=== PATIENT | female | born 1950 | race African-American/Black ===

== ENCOUNTER 2018-08-31 21:10 | Inpatient (IN) | payer MEDICARE, OTHER ==
[~2018-08-31] VITALS: Ht 162.6 cm; Wt 59.0 kg
[2018-08-31 21:20] VITALS: BP 116/74
--- NOTE | 2018-08-31 21:20 | NUR ---
ED Nurse Note: Pt was BIBA from home, c/o ETOH. Pt is A/O X3, Confused. Vital signs stable at this time, waiting for orders.
[2018-08-31] MEDS ORDERED: DiphenhydrAMINE 50mg/ml Inj IVP ONE (21:30)
[2018-08-31] MEDS ORDERED: Metoclopramide 10mg/2ml Inj IVP ONE (21:30)
--- NOTE | 2018-08-31 22:00 | NUR ---
ED Nurse Note: Blood and urine sample collected and sent to Lab.
--- NOTE | 2018-08-31 22:18 | NUR ---
ED Nurse Note: Meds given as ordered.
[2018-08-31 22:49] LABS: APPEARANCE,URINE CLEAR; BILIRUBIN, URINE NEGATIVE (NEGATIVE); COLOR,URINE PALE YELLOW; GLUCOSE, URINE (UA) NEGATIVE (NEGATIVE); KETONES,URINE NEGATIVE (NEGATIVE); LEUKOCYTE ESTERASE ,URINE NEGATIVE (NEGATIVE); NITRITE,URINE NEGATIVE (NEGATIVE); PH,URINE 6 (4.5-8.0); PROTEIN,URINE NEGATIVE (NEGATIVE); UROBILINOGEN,URINE NORMAL MG/DL (0.0-1.0)
[2018-08-31 23:19] LABS: BASOPHILS % (AUTO) 1.7 % (0.0-2.0); EOSINOPHILS % (AUTO) 1.6 % (0.0-3.0); HEMOGLOBIN 13.3 G/DL (12.0-16.0); MEAN CORPUSCULAR VOLUME 81 FL (80-99); MONOCYTES % (AUTO) 6.7 % (1.0-10.0); PLATELET COUNT 295 K/UL (150-450); RED BLOOD COUNT 5.03 M/UL (4.20-5.40); WHITE BLOOD COUNT 5.3 K/UL (4.8-10.8)
[2018-08-31 23:44] LABS: ANION GAP 15 mmol/L (5-15); BLOOD UREA NITROGEN 16 mg/dL (7-18); CALCIUM 9.7 MG/DL (8.5-10.1); CARBON DIOXIDE 21 MMOL/L (21-32); CHLORIDE 106 MMOL/L (98-107); CREATININE 0.8 MG/DL (0.55-1.30); POTASSIUM 4.4 MMOL/L (3.5-5.1); SODIUM 142 MMOL/L (136-145)
[2018-08-31 23:49] LABS: ALANINE AMINOTRANSFERASE 22 U/L (12-78); ALBUMIN 4.3 G/DL (3.4-5.0); ALBUMIN/GLOBULIN RATIO 0.8 (1.0-2.7); ALKALINE PHOSPHATASE 110 U/L (46-116); ASPARTATE AMINO TRANSFERASE 33 U/L (15-37); BILIRUBIN,TOTAL 0.3 MG/DL (0.2-1.0)
--- NOTE | 2018-09-01 01:00 | Emergency Room Report ---
History of Present Illness General Chief Complaint: Alcohol Intoxication Source: Patient, EMS Present Illness HPI Patient presents with EMS for alcohol ingestion. She's complaining about chest pain at this time. She points to one point in her chest. She rates the pain 6/ 10, pleuritic and positional nonradiating. She denies cough, fever, chills. No palpitations, nausea, vomiting, diarrhea, dysuria, abdominal pain, shortness of breath, depression, visual changes, headache. Neighbors called. She lives by herself. Neighbors are concerned that she might be unable to care for herself. Allergies: Coded Allergies: No Known Allergies (Unverified , 08/31/18) Patient History Past Medical History: see triage record Social History: Reports: alcohol use; Denies: smoking Social History Narrative Lives by herself Reviewed Nursing Documentation: PMH: Agreed; PSxH: Agreed Nursing Documentation-PMH Past Medical History: No Stated History Review of Systems All Other Systems: negative except mentioned in HPI Physical Exam Vital Signs Date Time Temp Pulse Resp B/P (MAP) Pulse Ox O2 Delivery O2 Flow Rate FiO2 08/31/18 21:13 98.1 92 16 117/78 98 Room Air Sp02 EP Interpretation: reviewed, normal General Appearance: well appearing, no apparent distress, non-toxic, other - GCS 14 Head: normocephalic, atraumatic Eyes: bilateral eye PERRL, bilateral eye EOMI, bilateral eye Scleral Injection ENT: moist mucus membranes - Poor dentition Neck: full range of motion, supple, no bony tend Respiratory: lungs clear, normal breath sounds Cardiovascular #1: regular rate, rhythm Cardiovascular #2: 2+ radial (R) Gastrointestinal: normal inspection, normal bowel sounds, non tender, no mass, non-distended Musculoskeletal: back normal, gait/station normal, normal range of motion Neurologic: alert, motor strength/tone normal, DTRs symmetric, sensory intact, other - Slurred speech and ataxia, nystagmus, oriented - 2 Psychiatric: mood/affect normal, no suicidal/homicidal ideation, other - Angry at nurse Skin: normal inspection, warm/dry Medical Decision Making Diagnostic Impression: Primary Impression: Failure to thrive Qualified Codes: R62.7 - Adult failure to thrive Additional Impressions: Alcohol abuse Chest pain Qualified Codes: R07.89 - Other chest pain ER Course Patient presents with acute alcohol intoxication and complaining about chest pain. Differential includes acute myocardial infarction, pneumonia, costochondritis amongst others. Patient will be evaluated with EKG, chest x- ray and labs. The patient will receive IV hydration and analgesia. EKG with sinus rhythm left atrial enlargement and nonspecific ST-T wave changes. Chest x-ray unremarkable. Labs with positive blood alcohol and negative troponin. Patient resting calmly and improved. Will need reevaluation when sober. Patient reevaluated at 2:15 AM. Easily awakened. States that she wants to go home. States that she lives alone. She denies suicidal ideation. She denies drinking every day. She still is slurred and unsteady on her feet. We'll continue to evaluate and observe until she is able to ambulate. Patient still weak. CT head ordered and admission. CT without acute process. Thiamine ordered. Will need social media marketing manager consult Laboratory Tests Test 08/31/18 20:20 08/31/18 22:00 Urine Color Pale yellow Urine Appearance Clear Urine pH 6 (4.5-8.0) Urine Specific [place] 1.005 (1.005-1.035) Urine Protein Negative (NEGATIVE) Urine Glucose (UA) Negative (NEGATIVE) Urine Ketones Negative (NEGATIVE) Urine Blood Negative (NEGATIVE) Urine Nitrite Negative (NEGATIVE) Urine Bilirubin Negative (NEGATIVE) Urine Urobilinogen Normal MG/DL (0.0-1.0) Urine Leukocyte Esterase Negative (NEGATIVE) Urine Opiates Screen Negative (NEGATIVE) Urine Barbiturates Screen Negative (NEGATIVE) Phencyclidine (PCP) Screen Negative (NEGATIVE) Urine Amphetamines Screen Negative (NEGATIVE) Urine Benzodiazepines Screen Negative (NEGATIVE) Urine Cocaine Screen Negative (NEGATIVE) Urine Marijuana (THC) Screen Negative (NEGATIVE) White Blood Count 5.3 K/UL (4.8-10.8) Red Blood Count 5.03 M/UL (4.20-5.40) Hemoglobin 13.3 G/DL (12.0-16.0) Hematocrit 41.0 % (37.0-47.0) Mean Corpuscular Volume 81 FL (80-99) Mean Corpuscular Hemoglobin 26.4 PG (27.0-31.0) L Mean Corpuscular Hemoglobin Concent 32.4 G/DL (32.0-36.0) Red Cell Distribution Width 14.0 % (11.6-14.8) Platelet Count 295 K/UL (150-450) Mean Platelet Volume 7.1 FL (6.5-10.1) Neutrophils (%) (Auto) 44.0 % (45.0-75.0) L Lymphocytes (%) (Auto) 46.0 % (20.0-45.0) H Monocytes (%) (Auto) 6.7 % (1.0-10.0) Eosinophils (%) (Auto) 1.6 % (0.0-3.0) Basophils (%) (Auto) 1.7 % (0.0-2.0) Sodium Level 142 MMOL/L (136-145) Potassium Level 4.4 MMOL/L (3.5-5.1) Chloride Level 106 MMOL/L (98-107) Carbon Dioxide Level 21 MMOL/L (21-32) Anion Gap 15 mmol/L (5-15) Blood Urea Nitrogen 16 mg/dL (7-18) Creatinine 0.8 MG/DL (0.55-1.30) Estimate Glomerular Filtration Rate > 60 mL/min (>60) Glucose Level 92 MG/DL (74-106) Calcium Level 9.7 MG/DL (8.5-10.1) Total Bilirubin 0.3 MG/DL (0.2-1.0) Aspartate Amino Transferase (AST) 33 U/L (15-37) Alanine Aminotransferase (ALT) 22 U/L (12-78) Alkaline Phosphatase 110 U/L (46-116) Troponin I 0.000 ng/mL (0.000-0.056) Total Protein 9.6 G/DL (6.4-8.2) H Albumin 4.3 G/DL (3.4-5.0) Globulin 5.3 g/dL Albumin/Globulin Ratio 0.8 (1.0-2.7) L Salicylates Level 4.0 ug/mL (2.8-20) Acetaminophen Level < 2 MCG/ML (10-30) L Serum Alcohol 345 mg/dL EKG Diagnostic Results Rate: normal Rhythm: NSR ST Segments: no acute changes - LAE Rhythm Strip Diag. Results EP Interpretation: yes Rhythm: NSR, no PVC's, no ectopy Chest X-Ray Diagnostic Results Chest X-Ray Diagnostic Results : Chest X-Ray Ordered: Yes # of Views/Limited/Complete: 1 View Indication: Chest Pain EP Interpretation: Yes Interpretation: no consolidation, no effusion, no pneumothorax, other - senile chest Impression: Other Electronically Signed by: Electronically signed by Kevin North MD CT/MRI/US Diagnostic Results CT/MRI/US Diagnostic Results : Imaging Test Ordered: head Impression no sig lesions Last Vital Signs Date Time Temp Pulse Resp B/P (MAP) Pulse Ox O2 Delivery O2 Flow Rate FiO2 09/01/18 08:00 97.8 77 18 120/67 (84) 99 09/01/18 06:25 Room Air Status: improved Disposition: ADMITTED INPATIENT Condition: Serious Scripts Unable to Obtain Active Prescriptions or Reported Meds Referrals: NOT CHOSEN IPA/,REFERRING (PCP) Kevin North MD Sep 01, 2018 01:00
[2018-09-01] MEDS ORDERED: Thiamine HCl 100 MG in D5W 55 ML IVPB STA (05:51)
--- NOTE | 2018-09-01 06:25 | NUR ---
TRANSFER TO FLOOR: Patient transferred to [facility]/321 as ordered . Report given to Bridge/RN. Belongings sent with Pt and rechecked with RN. Pt is A/O X 3. VSS.
[2018-09-01 06:50] VITALS: BP 134/69
--- NOTE | 2018-09-01 06:58 | NUR ---
NURSE NOTES: Received report from ER nurse Johanne Gamboa RN. Belongings checked. Patient A&Ox3-4. On room air. IVs intact, patent, and saline locked. Skin intact. has old scabs and surgery scars. Vital signs stable. Bed in lowest position with call light in reach.
--- NOTE | 2018-09-01 07:00 | NUR ---
NURSE NOTES: Report received from outgoing nurse, rounds made. Patient resting in semi-fowlers position in bed. Denies SOB on RA, no pain/NV. IV heplocks to right finger and LFA intact. Reinforced call light for safety, patient verbalized understanding. Reviewed patient history and medications (patient poor historian) Bed in lowest position, call light in reach, will notify Dr. Blackburn for admission orders, will continue to monitor.
[2018-09-01 08:00] VITALS: BP 120/67
--- NOTE | 2018-09-01 08:12 | NUR ---
HAND-OFF: Report given to VIPIN Fowler.
--- NOTE | 2018-09-01 09:40 | Diagnostic Imaging Report ---
Indication: Headache Technique: Contiguous 5 mm thick transaxial imaging of the head obtained in a Siemens Sensation [address] scanner. Soft tissue and bone windows generated. Automatic Exposure Control was utilized. Total Dose length Product (DLP): 1358.[address] Dose Index Volume (CTDIvol): 70.38 mGy Comparison: none Findings: There is mild prominence of the ventricles, basal cisterns, and cerebral sulci consistent with atrophy. Mild, nonspecific, white matter hypoattenuation is noted throughout the brain consistent with chronic small vessel disease. There is no midline shift, edema, acute hemorrhage, mass effect, or abnormal extra-axial fluid collections. Bones and extra osseous soft tissues are unremarkable. Impression: No acute intracranial bleed, mass effect or edema. Mild atrophy of the brain. Nonspecific white matter hypoattenuation probably due to chronic small vessel disease. [facility] has communicated the preliminary results to the Emergency Department. Their findings are largely concordant with this report. The CT scanner at [facility] is accredited by the [employer] and the scans are performed using dose optimization techniques as appropriate to a performed exam including Automatic Exposure control.
[2018-09-01] MEDS ORDERED: LORazepam 1mg tab ORAL PRN (10:15)
[2018-09-01 10:51] LABS: BASOPHILS % (AUTO) 1.8 % (0.0-2.0); EOSINOPHILS % (AUTO) 3.2 % (0.0-3.0); HEMATOCRIT 39.5 % (37.0-47.0); HEMOGLOBIN 12.3 G/DL (12.0-16.0); LYMPHOCYTES % (AUTO) 27.2 % (20.0-45.0); MEAN CORPUSCULAR VOLUME 83 FL (80-99); MONOCYTES % (AUTO) 11.3 % (1.0-10.0); NEUTROPHILS % (AUTO) 56.6 % (45.0-75.0); PLATELET COUNT 234 K/UL (150-450); RED BLOOD COUNT 4.75 M/UL (4.20-5.40); RED CELL DISTRIBUTION WIDTH 14.5 % (11.6-14.8); WHITE BLOOD COUNT 3.9 K/UL (4.8-10.8)
[2018-09-01 11:03] LABS: ALANINE AMINOTRANSFERASE 18 U/L (12-78); ALBUMIN 3.4 G/DL (3.4-5.0); ALBUMIN/GLOBULIN RATIO 0.7 (1.0-2.7); ALKALINE PHOSPHATASE 84 U/L (46-116); ANION GAP 12 mmol/L (5-15); ASPARTATE AMINO TRANSFERASE 21 U/L (15-37); BILIRUBIN,TOTAL 0.2 MG/DL (0.2-1.0); BLOOD UREA NITROGEN 14 mg/dL (7-18); CALCIUM 9.2 MG/DL (8.5-10.1); CARBON DIOXIDE 23 MMOL/L (21-32); CHLORIDE 111 MMOL/L (98-107); CREATININE 0.8 MG/DL (0.55-1.30); PHOSPHORUS 3.2 MG/DL (2.5-4.9); POTASSIUM 3.8 MMOL/L (3.5-5.1); SODIUM 146 MMOL/L (136-145)
--- NOTE | 2018-09-01 11:24 | NUR ---
*-* INSURANCE*-* ALL AVAILABLE CLINICALS HAS BEEN FAXED TO: SENTHIL HURD: TRUONG P- [id number] [phone] X 1613 f- [phone]...........REVIEW /CLINICAL
--- NOTE | 2018-09-01 11:55 | NUR ---
CASE MANAGEMENT:REVIEW 68 YR OLD FEMALE BIBA CC: ALCOHOL INTOXICATION SI: FTT. ALCOHOL ABUSE. CHEST PAIN 98.1 92 16 117/78 98% ON RA SERUM ALCOHOL(+) 345 IS: IV BENADRYL IV PEPCID 1L NS BOLUS IV REGLAN IV THIAMINE CT HEAD CHEST XRAY : TO MED/SURG 3 EAST IS: ATIVAN PO Q6HRS PRN PROTONIX PO QD IVF@75/HR INTERQUAL CRITERIA MET
[2018-09-01 12:00] VITALS: BP 133/63
--- NOTE | 2018-09-01 12:00 | Diagnostic Imaging Report ---
Indication: Chest pain Comparison: None A single view chest radiograph was obtained. Findings: No definite infiltrate or pulmonary vascular congestion identified. The heart is enlarged. The aorta is mildly enlarged consistent with atherosclerotic vascular disease. The bones are osteopenic. Impression: No acute disease
[2018-09-01] MEDS: D5 1/2NS w/KCl 20mEq 1,000 ML IV SCH (13:15)
--- NOTE | 2018-09-01 13:45 | NUR ---
NURSE NOTES: IVF started as ordered. Bilateral SCDs applied and instructed patient on purpose, verbalized understanding. Notify Dr. Blackburn of lab results (Mg 1.7, Sodium 146, Chlorine 111), no further orders received.
--- NOTE | 2018-09-01 15:11 | History & Physical ---
History and Physical History & Physicial Maicol Blackburn MD Sep 01, 2018 15:11
--- NOTE | 2018-09-01 15:24 | Consultation ---
History of Present Illness General Date patient seen: Sep 01, 2018 Chief Complaint: Alcohol Intoxication Present Illness HPI 68 year old female with no PMHx was taken by paramedics to ER because her neighbors called 911. She was found altered with ETOH level of 350. she is admitted for ETOH intoxication. Allergies: Coded Allergies: No Known Allergies (Unverified , 08/31/18) Medication History Unable to Obtain Active Prescriptions or Reported Meds Patient History Healthcare decision maker Resuscitation status Advanced Directive on File Past Medical/Surgical History Past Medical/Surgical History: (1) Alcohol abuse Review of Systems All Other Systems: negative except mentioned in HPI Physical Exam General Appearance: WD/WN Lines, tubes and drains: peripheral HEENT: normocephalic, atraumatic Neck: non-tender, normal alignment Respiratory/Chest: chest wall non-tender, lungs clear Breasts: no masses Cardiovascular/Chest: normal peripheral pulses Genitourinary/Rectal: normal genital exam Extremities: non-tender Skin Exam: normal pigmentation Last 24 Hour Vital Signs Date Time Temp Pulse Resp B/P (MAP) Pulse Ox O2 Delivery O2 Flow Rate FiO2 09/01/18 12:00 99.0 97 18 133/63 (86) 96 09/01/18 08:00 97.8 77 18 120/67 (84) 99 09/01/18 06:50 97.6 83 18 134/69 (90) 99 09/01/18 06:25 98.1 91 16 116/74 98 Room Air 08/31/18 21:20 92 16 Room Air 08/31/18 21:20 98.1 91 16 116/74 98 Room Air 08/31/18 21:13 98.1 92 16 117/78 98 Room Air Intake and Output 08/31/18 09/01/18 19:00 07:00 Intake Total 1600 ml Output Total 400 ml Balance 1200 ml Intake Oral 100 ml IV Total 1500 ml Output Urine Total 400 ml Laboratory Tests Test 08/31/18 20:20 08/31/18 22:00 09/01/18 10:35 Urine Color Pale yellow Urine Appearance Clear Urine pH 6 (4.5-8.0) Urine Specific [place] 1.005 (1.005-1.035) Urine Protein Negative (NEGATIVE) Urine Glucose (UA) Negative (NEGATIVE) Urine Ketones Negative (NEGATIVE) Urine Blood Negative (NEGATIVE) Urine Nitrite Negative (NEGATIVE) Urine Bilirubin Negative (NEGATIVE) Urine Urobilinogen Normal MG/DL (0.0-1.0) Urine Leukocyte Esterase Negative (NEGATIVE) Urine Opiates Screen Negative (NEGATIVE) Urine Barbiturates Screen Negative (NEGATIVE) Phencyclidine (PCP) Screen Negative (NEGATIVE) Urine Amphetamines Screen Negative (NEGATIVE) Urine Benzodiazepines Screen Negative (NEGATIVE) Urine Cocaine Screen Negative (NEGATIVE) Urine Marijuana (THC) Screen Negative (NEGATIVE) White Blood Count 5.3 K/UL (4.8-10.8) 3.9 K/UL (4.8-10.8) L Red Blood Count 5.03 M/UL (4.20-5.40) 4.75 M/UL (4.20-5.40) Hemoglobin 13.3 G/DL (12.0-16.0) 12.3 G/DL (12.0-16.0) Hematocrit 41.0 % (37.0-47.0) 39.5 % (37.0-47.0) Mean Corpuscular Volume 81 FL (80-99) 83 FL (80-99) Mean Corpuscular Hemoglobin 26.4 PG (27.0-31.0) L 25.9 PG (27.0-31.0) L Mean Corpuscular Hemoglobin Concent 32.4 G/DL (32.0-36.0) 31.2 G/DL (32.0-36.0) L Red Cell Distribution Width 14.0 % (11.6-14.8) 14.5 % (11.6-14.8) Platelet Count 295 K/UL (150-450) 234 K/UL (150-450) Mean Platelet Volume 7.1 FL (6.5-10.1) 6.3 FL (6.5-10.1) L Neutrophils (%) (Auto) 44.0 % (45.0-75.0) L 56.6 % (45.0-75.0) Lymphocytes (%) (Auto) 46.0 % (20.0-45.0) H 27.2 % (20.0-45.0) Monocytes (%) (Auto) 6.7 % (1.0-10.0) 11.3 % (1.0-10.0) H Eosinophils (%) (Auto) 1.6 % (0.0-3.0) 3.2 % (0.0-3.0) H Basophils (%) (Auto) 1.7 % (0.0-2.0) 1.8 % (0.0-2.0) Sodium Level 142 MMOL/L (136-145) 146 MMOL/L (136-145) H Potassium Level 4.4 MMOL/L (3.5-5.1) 3.8 MMOL/L (3.5-5.1) Chloride Level 106 MMOL/L (98-107) 111 MMOL/L (98-107) H Carbon Dioxide Level 21 MMOL/L (21-32) 23 MMOL/L (21-32) Anion Gap 15 mmol/L (5-15) 12 mmol/L (5-15) Blood Urea Nitrogen 16 mg/dL (7-18) 14 mg/dL (7-18) Creatinine 0.8 MG/DL (0.55-1.30) 0.8 MG/DL (0.55-1.30) Estimat Glomerular Filtration Rate > 60 mL/min (>60) > 60 mL/min (>60) Glucose Level 92 MG/DL (74-106) 85 MG/DL (74-106) Calcium Level 9.7 MG/DL (8.5-10.1) 9.2 MG/DL (8.5-10.1) Total Bilirubin 0.3 MG/DL (0.2-1.0) 0.2 MG/DL (0.2-1.0) Aspartate Amino Transf (AST/SGOT) 33 U/L (15-37) 21 U/L (15-37) Alanine Aminotransferase (ALT/SGPT) 22 U/L (12-78) 18 U/L (12-78) Alkaline Phosphatase 110 U/L (46-116) 84 U/L (46-116) Troponin I 0.000 ng/mL (0.000-0.056) Total Protein 9.6 G/DL (6.4-8.2) H 8.0 G/DL (6.4-8.2) Albumin 4.3 G/DL (3.4-5.0) 3.4 G/DL (3.4-5.0) Globulin 5.3 g/dL 4.6 g/dL Albumin/Globulin Ratio 0.8 (1.0-2.7) L 0.7 (1.0-2.7) L Salicylates Level 4.0 ug/mL (2.8-20) Acetaminophen Level < 2 MCG/ML (10-30) L Serum Alcohol 345 mg/dL Phosphorus Level 3.2 MG/DL (2.5-4.9) Magnesium Level 1.7 MG/DL (1.8-2.4) L Height (Feet): 5 Height (Inches): 4.00 Weight (Pounds): 130 Medications Current Medications Medications (Trade) Dose Ordered Sig/Sasha Route PRN Reason Start Time Stop Time Status Last Admin Dose Admin Dextrose/ Electrolytes 1,000 ml @ 75 mls/hr [id number] IV 09/01/18 12:00 10/01/18 11:59 09/01/18 13:15 Lorazepam (Ativan) 1 mg Q6H PRN ORAL For Agitation 09/01/18 10:15 09/08/18 10:14 Pantoprazole (Protonix) 40 mg DAILY ORAL 09/01/18 11:00 10/01/18 10:59 09/01/18 13:15 Assessment/Plan Problem List: (1) Acute encephalopathy ICD Codes: G93.40 - Encephalopathy, unspecified SNOMED: 49039124, 340692387 (2) Alcohol abuse ICD Codes: F10.10 - Alcohol abuse, uncomplicated SNOMED: 05000785 Diagnosis [place] I: iv fluids Banan bag check electrolytes folic acid and thiamine dvt prophylaxis. Elan Rodney MD Sep 01, 2018 15:24
[2018-09-01 16:00] VITALS: BP 130/65
--- NOTE | 2018-09-01 19:00 | NUR ---
NURSE NOTES: Seizure pads applied to bed. No seizure activity noted throughout shift. Will continue to monitor.
--- NOTE | 2018-09-01 19:15 | NUR ---
HAND-OFF: Report given to Yessy LEW.
[2018-09-01 20:00] VITALS: BP 138/79
--- NOTE | 2018-09-01 21:55 | Cardiology Report ---
APPROVED REPORT EKG Measurement Heart [id number] Normal sinus rhythm Possible Left atrial enlargement Borderline ECG
[2018-09-02] VITALS (7 sets, daily range): BP systolic 130–159; BP diastolic 71–89
--- NOTE | 2018-09-02 | NUR ---
NURSE NOTES: pATIENT IS AAOX3, POOR HISTORIAN. NO PAIN/ AGITATION NOTED. IV SITE INTACT AND PATENT WITH FLUIDS RUNNING. SEIZURE PRECAUTIONS NOTED. BED LOW, BED ALARM ON, CALL LIGHT WITHIN REACH.
--- NOTE | 2018-09-02 00:30 | History and Physical Report ---
DATE OF ADMISSION: 09/01/2018 CHIEF COMPLAINT: Chest wall pain as well as alcohol intoxication. HISTORY OF PRESENT ILLNESS: This is a 68-year-old female with past medical history significant for hypertension, alcoholism, and seizure disorder, who has presented to the hospital complaining about chest wall discomfort as well as alcoholism. The patient was recently admitted to [facility] about two weeks ago for chest pain, had an extensive workup done, according to the patient was essentially unremarkable and subsequently, the patient was discharged home. Now, after the neighbor called, and the patient was subsequently presented to the hospital for further evaluation and alcohol intoxication. PAST MEDICAL HISTORY/PAST SURGICAL HISTORY: Very limited secondary to the patient's status. The patient is a very poor historian and has hypertension and seizure disorder. Denies any dyslipidemia, history of abdominal surgery about 10 years ago. MEDICATIONS AT HOME: Unknown. SOCIAL HISTORY: The patient currently drinks a six-pack of beer since age of 13. Denies any substance abuse. Denies any smoking. FAMILY HISTORY: Noncontributory. REVIEW OF SYSTEMS: Very limited secondary to the patient's status. Complained about chest wall discomfort. Denies any loss of consciousness. Denies any fall or head trauma. Denies any suicidal or homicidal ideation. Denies any double vision. No seizure activity at this time. However, the patient has a history of seizure. PHYSICAL EXAMINATION: VITAL SIGNS: On admission, temperature 98.1, pulse of 92, respirations 16, and blood pressure 117/78. GENERAL: The patient is awake, responsive, and in no acute distress. HEAD AND NECK: Pupils are reactive to light. Extraocular movements are intact. Neck was supple. No JVD. LUNGS: Good air entry. No wheezing or rales. HEART: S1, S2. Distant heart sounds. No murmurs. No gallops. ABDOMEN: Soft, nondistended, and nontender. Mildly obese. The patient has a midline surgical scar, multiple, one was noted, well healed. EXTREMITIES: No cyanosis, clubbing, or edema. NEUROLOGIC: INSIDE PARTS SALES II through XII grossly intact. Motor is 5/5 in all extremities. Gait is not assessed due to the patient's status at this time. RECTAL: Refused and deferred. GENITOURINARY: Refused and deferred. PSYCHIATRIC: Mood and affect is intact LABORATORY DATA: On admission from the ER, WBC of 5.3, hemoglobin 13, hematocrit 41, and platelets is 295,000. Sodium 142, potassium 4.4, chloride 106, bicarb 21, BUN 16, and creatinine 0.8. GFR is greater than 60. Glucose 92. Troponin 0.01. Total bilirubin of 0.3. Albumin is 4.3. Urinalysis is unremarkable. Urine drug screen is all negative. Alcohol serum alcohol level is 345. The patient had a CT of the head, no acute intracranial bleeding, mass effect, or edema. Mild atrophy of the brain, nonspecific white matter, hypoattenuation, probably due to the chronic small-vessel disease. Chest x-ray, no acute disease, no infiltrate, and no pulmonary vascular congestion. EKG was noted to be normal sinus rhythm, ventricular rate of 81, left atrial enlargement. No ST elevation was noted. The patient had a Q-wave in the inferior leads, leads 2, 3, and AVF was noted as well as V5, V6. ASSESSMENT: 1. Atypical chest pain, possibly due to the acid reflux or gastroesophageal reflux disease. 2. Alcohol intoxication. 3. Hypertension. 4. Failure to thrive. PLAN: 1. Admit the patient to Med/Surg. 2. We will follow up with Dr. Rodney, Pulmonary Critical Care. 3. Aggressive IV hydration. 4. Alcohol withdrawal precaution. 5. We will try to obtain the medical record and the medication list from the patient or the prior admission from the other hospital. 6. We will follow up with the laboratory in the morning. 7. PT and OT evaluation. Maicol Blackburn M.D. DR: CHIKI JOB#: [id number] CC:
[2018-09-02] MEDS: D5 1/2NS w/KCl 20mEq 1,000 ML IV SCH ×2 (01:49→14:40)
--- NOTE | 2018-09-02 07:10 | NUR ---
NURSE NOTES: Report received from outgoing nurse, rounds made. Patient sitting in high fowlers position in bed, eating breakfast, no difficulty chewing or swallowing. Denies NV, SOB on RA, or pain. Seizure pads in place. Bilateral SCDS on. Reinforced call light for safety. IVF infusing to right finger as ordered. Left hand heplock discontinued due to catheter coming out. Offered bedpan, patient denied need to void/BM at this time. Call light in reach, bed in lowest position, will continue to monitor.
--- NOTE | 2018-09-02 07:50 | NUR ---
HAND-OFF: Report given to VIPIN Fowler. Patient stable.
--- NOTE | 2018-09-02 10:28 | NUR ---
RD ASSESSMENT & RECOMMENDATIONS SEE CARE ACTIVITY FOR COMPLETE ASSESSMENT DAILY ESTIMATED NEEDS: Needs based on General, 59kg 25-30 kcals/kg [id number] total kcals 0.8-1.0 g protein/kg 47-59 g total protein 25-30 mL/kg [id number] total fluid mLs NUTRITION DIAGNOSIS: Altered nutrition related lab values R/T clinical condition, ETOH abuse as evidenced by low mag (1.7), serum alcohol of 345 upon adm. CURRENT DIET:CARDIAC PO DIET RECOMMENDATIONS: REGULAR diet as tolerated ADDITIONAL RECOMMENDATIONS: Standing wt as able for accurate CBW Replete lytes, monitor closely (low mag) Continue B1 and folate- h/o alcohol abuse Monitor PO tolerance, for alcohol withdrawal
--- NOTE | 2018-09-02 10:47 | Physician Query ---
Please provide an appropriate diagnosis clarifying the Etiology and Acuity of this clinical scenario: Metabolic Encephalopathy Toxic Encephalopathy Toxic - Metabolic Encephalopathy Septic Encephalopathy with Sepsis Acute Hepatic Encephalopathy Subacute Hepatic Encephalopathy Encephalopathy due to drugs Encephalopathy Other: Unable To Determine Present on Admission: Yes (Y) Clinically Undeterminable (W) No (N) PHYSICIAN QUERY FORM ALTERED LEVEL OF CONSCIOUSNESS
[2018-09-02] MEDS: Thiamine 100mg tab ORAL SCH (10:52)
--- NOTE | 2018-09-02 11:28 | Pulmonology Progress Note ---
Assessment/Plan Problems: (1) Acute encephalopathy (2) Alcohol abuse (3) Failure to thrive Assessment/Plan iv fluids pt/ot neuro evaluation check electrolytes Subjective ROS Limited/Unobtainable: No Allergies: Coded Allergies: No Known Allergies (Unverified , 08/31/18) Objective Last 24 Hour Vital Signs Date Time Temp Pulse Resp B/P (MAP) Pulse Ox O2 Delivery O2 Flow Rate FiO2 09/02/18 08:00 97.9 83 16 130/71 (90) 98 09/02/18 04:00 98.5 78 20 147/78 (101) 96 09/02/18 00:00 98.0 74 20 159/89 (112) 98 09/01/18 21:00 Room Air 09/01/18 20:00 99.1 90 20 138/79 (98) 96 09/01/18 18:00 Room Air 09/01/18 16:00 98.8 87 18 130/65 (86) 96 09/01/18 12:00 99.0 97 18 133/63 (86) 96 Intake and Output 09/01/18 09/02/18 19:00 07:00 Intake Total 990 ml 975 ml Balance 990 ml 975 ml Intake Oral 540 ml IV Total 450 ml 975 ml # Voids 2 # Bowel Movements 2 1 Objective General Appearance: WD/WN Lines, tubes and drains: peripheral HEENT: normocephalic, atraumatic Neck: non-tender, normal alignment Respiratory/Chest: chest wall non-tender, lungs clear Breasts: no masses Cardiovascular/Chest: normal peripheral pulses Genitourinary/Rectal: normal genital exam Extremities: non-tender Skin Exam: normal pigmentation Current Medications Medications (Trade) Dose Ordered Sig/Sasha Route PRN Reason Start Time Stop Time Status Last Admin Dose Admin Dextrose/ Electrolytes 1,000 ml @ 75 mls/hr [id number] IV 09/01/18 12:00 10/01/18 11:59 09/02/18 01:49 Folic Acid (Folate) 1 mg DAILY ORAL 09/02/18 09:00 10/02/18 08:59 09/02/18 10:52 Lorazepam (Ativan) 1 mg Q6H PRN ORAL For Agitation 09/01/18 10:15 09/08/18 10:14 Pantoprazole (Protonix) 40 mg DAILY ORAL 09/01/18 11:00 10/01/18 10:59 09/02/18 10:51 Thiamine HCl (Vitamin B1) 100 mg DAILY ORAL 09/02/18 09:00 10/02/18 08:59 09/02/18 10:52 Elan Rodney MD Sep 02, 2018 11:28
--- NOTE | 2018-09-02 13:30 | NUR ---
CASE MANAGEMENT: REVIEW SI: ACUTE ENCEPHALOPATHY . ALCOHOL ABUSE . FAILURE TO THRIVE T 98.1 HR 75 RR 18 BP 159/89 SAT 96% ROOM AIR IS: FOLIC ACID PO QD THIAMINE PO QD D5 1/2 w/KCl 20mEq IVF @75ML/HR PROTONIX PO QD ATIVAN PO Q6HR PRN MED/SURG STATUS DCP: PATIENT IS FROM HOME
--- NOTE | 2018-09-02 15:39 | Internal Med Progress Note ---
Subjective Date of Service: Sep 02, 2018 Physician Name Juan F Molina Attending Physician Maicol Blackburn MD Current Medications Medications (Trade) Dose Ordered Sig/Sasha Route PRN Reason Start Time Stop Time Status Last Admin Dose Admin Dextrose/ Electrolytes 1,000 ml @ 75 mls/hr [id number] IV 09/01/18 12:00 10/01/18 11:59 09/02/18 01:49 Folic Acid (Folate) 1 mg DAILY ORAL 09/02/18 09:00 10/02/18 08:59 09/02/18 10:52 Lorazepam (Ativan) 1 mg Q6H PRN ORAL For Agitation 09/01/18 10:15 09/08/18 10:14 Pantoprazole (Protonix) 40 mg DAILY ORAL 09/01/18 11:00 10/01/18 10:59 09/02/18 10:51 Thiamine HCl (Vitamin B1) 100 mg DAILY ORAL 09/02/18 09:00 10/02/18 08:59 09/02/18 10:52 Allergies: Coded Allergies: No Known Allergies (Unverified , 08/31/18) ROS Limited/Unobtainable: No Constitutional: Reports: no symptoms HEENT: Reports: no symptoms Cardiovascular: Reports: no symptoms Respiratory: Reports: no symptoms Gastrointestinal/Abdominal: Reports: no symptoms Genitourinary: Reports: no symptoms Neurologic/Psychiatric: Reports: no symptoms Subjective 68 YO F admitted with atypical chest pain and alcohol intoxication. Cover for Int Frederic-Dr Blackburn Objective Last Vital Signs Date Time Temp Pulse Resp B/P (MAP) Pulse Ox O2 Delivery O2 Flow Rate FiO2 09/02/18 12:05 98.1 75 18 137/74 (95) 97 09/01/18 21:00 Room Air Intake and Output 09/01/18 09/02/18 19:00 07:00 Intake Total 990 ml 975 ml Balance 990 ml 975 ml Intake Oral 540 ml IV Total 450 ml 975 ml # Voids 2 # Bowel Movements 2 1 Objective PHYSICAL EXAMINATION: GENERAL: The patient is awake, responsive, and in no acute distress. HEAD AND NECK: Pupils are reactive to light. Extraocular movements are intact. Neck was supple. No JVD. LUNGS: Good air entry. No wheezing or rales. HEART: S1, S2. Distant heart sounds. No murmurs. No gallops. ABDOMEN: Soft, nondistended, and nontender. Mildly obese. The patient has a midline surgical scar, multiple, one was noted, well healed. EXTREMITIES: No cyanosis, clubbing, or edema. NEUROLOGIC: NARROW GAUGE ENGINEER II through XII grossly intact. Motor is 5/5 in all extremities. Gait is not assessed due to the patient's status at this time. RECTAL: Refused and deferred. GENITOURINARY: Refused and deferred. PSYCHIATRIC: Mood and affect is intact Assessment/Plan Assessment/Plan ASSESSMENT: 1. Atypical chest pain, possibly due to the acid reflux or gastroesophageal reflux disease. 2. Alcohol intoxication. 3. Hypertension. 4. Failure to thrive. PLAN: 1. Admit the patient to Med/Surg. 2. We will follow up with Dr. Rodney, Pulmonary Critical Care. 3. Aggressive IV hydration. 4. Alcohol withdrawal precaution. 5. We will try to obtain the medical record and the medication list from the patient or the prior admission from the other hospital. 6. We will follow up with the laboratory in the morning. 7. PT and OT evaluation. Juan F Molina MD Sep 02, 2018 15:39
--- NOTE | 2018-09-02 17:15 | NUR ---
NURSE NOTES: Patient experiencing left shoulder pain, 7/10, after multiple IV insertion attempts (unsuccessful). Elevated LUE and applie Ice pack to left shoulder. Patient reports pain decreased to 4/10. Will continue to monitor.
--- NOTE | 2018-09-02 19:00 | NUR ---
NURSE NOTES: Notified Dr. Molina of no IV access and unable find IV access with many attempts, order for PICC line placement, see order.
--- NOTE | 2018-09-02 19:40 | NUR ---
HAND-OFF: Report given to Yessy LEW.
--- NOTE | 2018-09-02 19:45 | NUR ---
NURSE NOTES: Patient is in bed, aaox3. Pain 5/10 left shoulder. Ice pack applied. Patient refusing to signs PICC line insertion consent. Says she feels "scared". Will notify MD in Am. Side rails upx2, bed alarm on, side rails padded, bed low, call light within reach.
--- NOTE | 2018-09-02 23:04 | Consultation ---
History of Present Illness General Date patient seen: Sep 02, 2018 Chief Complaint: Alcohol Intoxication Referring physician: Dr. Jason Noble Reason for Consultation: AMS Present Illness ARASH Garvey is a 68 year old female with no PMHx was taken by paramedics to ER because her neighbors called 911. She was found altered with ETOH level of 350. she is admitted for ETOH intoxication. Allergies: Coded Allergies: No Known Allergies (Unverified , 08/31/18) Medication History Unable to Obtain Active Prescriptions or Reported Meds Patient History Healthcare decision maker Resuscitation status Advanced Directive on File Physical Exam Last 24 Hour Vital Signs Date Time Temp Pulse Resp B/P (MAP) Pulse Ox O2 Delivery O2 Flow Rate FiO2 09/02/18 21:00 Room Air 09/02/18 20:00 99.1 76 18 149/80 (103) 99 09/02/18 17:00 94 146/80 (102) 09/02/18 16:05 98.8 80 18 147/78 (101) 95 09/02/18 12:05 98.1 75 18 137/74 (95) 97 09/02/18 09:00 Room Air 09/02/18 08:00 97.9 83 16 130/71 (90) 98 09/02/18 04:00 98.5 78 20 147/78 (101) 96 09/02/18 00:00 98.0 74 20 159/89 (112) 98 Intake and Output 09/01/18 09/02/18 19:00 07:00 Intake Total 990 ml 975 ml Balance 990 ml 975 ml Intake Oral 540 ml IV Total 450 ml 975 ml # Voids 2 # Bowel Movements 2 1 Height (Feet): 5 Height (Inches): 4.00 Weight (Pounds): 130 Medications Current Medications Medications (Trade) Dose Ordered Sig/Sasha Route PRN Reason Start Time Stop Time Status Last Admin Dose Admin Dextrose/ Electrolytes 1,000 ml @ 75 mls/hr [id number] IV 09/01/18 12:00 10/01/18 11:59 09/02/18 01:49 Folic Acid (Folate) 1 mg DAILY ORAL 09/02/18 09:00 10/02/18 08:59 09/02/18 10:52 Lorazepam (Ativan) 1 mg Q6H PRN ORAL For Agitation 09/01/18 10:15 09/08/18 10:14 Pantoprazole (Protonix) 40 mg DAILY ORAL 09/01/18 11:00 10/01/18 10:59 09/02/18 10:51 Thiamine HCl (Vitamin B1) 100 mg DAILY ORAL 09/02/18 09:00 10/02/18 08:59 09/02/18 10:52 Rebecca Dyer N.P. Sep 02, 2018 23:04
[2018-09-03] VITALS: BP 134/72
[2018-09-03 04:00] VITALS: BP 136/72
[2018-09-03] MEDS: D5 1/2NS w/KCl 20mEq 1,000 ML IV SCH (04:00)
[2018-09-03 07:04] LABS: BASOPHILS % (AUTO) 2.3 % (0.0-2.0); EOSINOPHILS % (AUTO) 3.5 % (0.0-3.0); HEMATOCRIT 40.2 % (37.0-47.0); HEMOGLOBIN 12.7 G/DL (12.0-16.0); LYMPHOCYTES % (AUTO) 40.1 % (20.0-45.0); MEAN CORPUSCULAR VOLUME 82 FL (80-99); MONOCYTES % (AUTO) 9.2 % (1.0-10.0); NEUTROPHILS % (AUTO) 44.9 % (45.0-75.0); PLATELET COUNT 252 K/UL (150-450); RED CELL DISTRIBUTION WIDTH 13.8 % (11.6-14.8); WHITE BLOOD COUNT 5.1 K/UL (4.8-10.8)
[2018-09-03 07:08] LABS: ANION GAP 9 mmol/L (5-15); CALCIUM 10.3 MG/DL (8.5-10.1); CARBON DIOXIDE 27 MMOL/L (21-32); CHLORIDE 102 MMOL/L (98-107); CREATININE 0.7 MG/DL (0.55-1.30); POTASSIUM 4.3 MMOL/L (3.5-5.1); SODIUM 138 MMOL/L (136-145)
--- NOTE | 2018-09-03 07:20 | NUR ---
NURSE NOTES: Report received from outgoing nurse, rounds made. Patient sleeping in supine position in bed. No distress noted, on RA. No IV access. Call light in reach, bed in lowest position, will continue to monitor.
[2018-09-03 07:23] LABS: BLOOD UREA NITROGEN 12 mg/dL (7-18)
--- NOTE | 2018-09-03 07:23 | NUR ---
HAND-OFF: Report given to VIPIN Fowler.Endorsed patient did not sign PICC line consent.
[2018-09-03 08:00] VITALS: BP 131/78
[2018-09-03] MEDS: Thiamine 100mg tab ORAL SCH (09:21)
--- NOTE | 2018-09-03 09:30 | NUR ---
NURSE NOTES: Patient up to bathroom with assist and RW, gait slow. BM (BFM). Tolerated breakfast, no NV. Sitting up in chair, call light in reach. Left shoulder pain 7/10, applied ice pack. Discussed another possible attempt later to obtain IV access, patient agreed. Explained PICC line procedure, patient still hesitant and does not want to sign the consent at this time. Will continue to monitor.
--- NOTE | 2018-09-03 11:45 | NUR ---
NURSE NOTES: Patient reports left shoulder pain has improved with ice pack application, / at this time, will continue to monitor.
[2018-09-03 12:00] VITALS: BP 120/75
[2018-09-03] MEDS ORDERED: HYDROcodone/Acetamin 5/325 tab ORAL PRN (14:30)
--- NOTE | 2018-09-03 14:37 | Pulmonology Progress Note ---
Assessment/Plan Problems: (1) Acute encephalopathy (2) Alcohol abuse (3) Failure to thrive Assessment/Plan doing better dc iv fluids pt/ot neuro evaluation check electrolytes Subjective ROS Limited/Unobtainable: No Constitutional: Reports: no symptoms HEENT: Repors: no symptoms Respiratory: Reports: no symptoms Allergies: Coded Allergies: No Known Allergies (Unverified , 08/31/18) Objective Last 24 Hour Vital Signs Date Time Temp Pulse Resp B/P (MAP) Pulse Ox O2 Delivery O2 Flow Rate FiO2 09/03/18 12:00 98.2 82 17 120/75 (90) 100 09/03/18 09:00 Room Air 09/03/18 08:00 98.5 114 19 131/78 (95) 96 09/03/18 04:00 98.6 86 18 136/72 (93) 99 09/03/18 00:00 98.6 86 18 134/72 (92) 99 09/02/18 21:00 Room Air 09/02/18 20:00 99.1 76 18 149/80 (103) 99 09/02/18 17:00 94 146/80 (102) 09/02/18 16:05 98.8 80 18 147/78 (101) 95 Intake and Output 09/02/18 09/03/18 19:00 07:00 Intake Total 1054 ml Balance 1054 ml Intake Oral 829 ml IV Total 225 ml # Voids 3 Objective General Appearance: WD/WN Lines, tubes and drains: peripheral HEENT: normocephalic, atraumatic Neck: non-tender, normal alignment Respiratory/Chest: chest wall non-tender, lungs clear Breasts: no masses Cardiovascular/Chest: normal peripheral pulses Genitourinary/Rectal: normal genital exam Extremities: non-tender Skin Exam: normal pigmentation Laboratory Tests 09/03/18 04:50: White Blood Count 5.1, Red Blood Count 4.90, Hemoglobin 12.7, Hematocrit 40.2, Mean Corpuscular Volume 82, Mean Corpuscular Hemoglobin 25.8L, Mean Corpuscular Hemoglobin Concent 31.6L, Red Cell Distribution Width 13.8, Platelet Count 252, Mean Platelet Volume 6.3L, Neutrophils (%) (Auto) 44.9L, Lymphocytes (%) (Auto) 40.1, Monocytes (%) (Auto) 9.2, Eosinophils (%) (Auto) 3.5H, Basophils (%) (Auto ) 2.3H, Sodium Level 138, Potassium Level 4.3, Chloride Level 102, Carbon Dioxide Level 27, Anion Gap 9, Blood Urea Nitrogen 12, Creatinine 0.7, Estimat Glomerular Filtration Rate > 60, Glucose Level 90, Calcium Level 10.3H Current Medications Medications (Trade) Dose Ordered Sig/Sasha Route PRN Reason Start Time Stop Time Status Last Admin Dose Admin Acetaminophen/ Hydrocodone Bitart ([place] 5/325) 1 tab Q6H PRN ORAL Moderate Pain (Pain Scale 4-6) 09/03/18 14:30 09/10/18 14:29 Folic Acid (Folate) 1 mg DAILY ORAL 09/02/18 09:00 10/02/18 08:59 09/03/18 09:21 Lorazepam (Ativan) 1 mg Q6H PRN ORAL For Agitation 09/01/18 10:15 09/08/18 10:14 Pantoprazole (Protonix) 40 mg DAILY ORAL 09/01/18 11:00 10/01/18 10:59 09/03/18 09:21 Thiamine HCl (Vitamin B1) 100 mg DAILY ORAL 09/02/18 09:00 10/02/18 08:59 09/03/18 09:21 Elan Rodney MD Sep 03, 2018 14:37
[2018-09-03 16:00] VITALS: BP 120/76
--- NOTE | 2018-09-03 16:11 | Internal Med Progress Note ---
Subjective Date of Service: Sep 03, 2018 Physician Name Juan F Molina Attending Physician Maicol Blackburn MD Current Medications Medications (Trade) Dose Ordered Sig/Sasha Route PRN Reason Start Time Stop Time Status Last Admin Dose Admin Acetaminophen/ Hydrocodone Bitart ([place] 5/325) 1 tab Q6H PRN ORAL Moderate Pain (Pain Scale 4-6) 09/03/18 14:30 09/10/18 14:29 Folic Acid (Folate) 1 mg DAILY ORAL 09/02/18 09:00 10/02/18 08:59 09/03/18 09:21 Lorazepam (Ativan) 1 mg Q6H PRN ORAL For Agitation 09/01/18 10:15 09/08/18 10:14 Pantoprazole (Protonix) 40 mg DAILY ORAL 09/01/18 11:00 10/01/18 10:59 09/03/18 09:21 Thiamine HCl (Vitamin B1) 100 mg DAILY ORAL 09/02/18 09:00 10/02/18 08:59 09/03/18 09:21 Allergies: Coded Allergies: No Known Allergies (Unverified , 08/31/18) ROS Limited/Unobtainable: No Constitutional: Reports: no symptoms HEENT: Reports: no symptoms Cardiovascular: Reports: no symptoms Respiratory: Reports: no symptoms Gastrointestinal/Abdominal: Reports: no symptoms Genitourinary: Reports: no symptoms Neurologic/Psychiatric: Reports: no symptoms Subjective 68 YO F admitted with atypical chest pain and alcohol intoxication. Cover for Int Med-Dr Blackburn Objective Last Vital Signs Date Time Temp Pulse Resp B/P (MAP) Pulse Ox O2 Delivery O2 Flow Rate FiO2 09/03/18 12:00 98.2 82 17 120/75 (90) 100 09/03/18 09:00 Room Air Laboratory Tests Test 09/03/18 04:50 White Blood Count 5.1 K/UL (4.8-10.8) Red Blood Count 4.90 M/UL (4.20-5.40) Hemoglobin 12.7 G/DL (12.0-16.0) Hematocrit 40.2 % (37.0-47.0) Mean Corpuscular Volume 82 FL (80-99) Mean Corpuscular Hemoglobin 25.8 PG (27.0-31.0) L Mean Corpuscular Hemoglobin Concent 31.6 G/DL (32.0-36.0) L Red Cell Distribution Width 13.8 % (11.6-14.8) Platelet Count 252 K/UL (150-450) Mean Platelet Volume 6.3 FL (6.5-10.1) L Neutrophils (%) (Auto) 44.9 % (45.0-75.0) L Lymphocytes (%) (Auto) 40.1 % (20.0-45.0) Monocytes (%) (Auto) 9.2 % (1.0-10.0) Eosinophils (%) (Auto) 3.5 % (0.0-3.0) H Basophils (%) (Auto) 2.3 % (0.0-2.0) H Sodium Level 138 MMOL/L (136-145) Potassium Level 4.3 MMOL/L (3.5-5.1) Chloride Level 102 MMOL/L (98-107) Carbon Dioxide Level 27 MMOL/L (21-32) Anion Gap 9 mmol/L (5-15) Blood Urea Nitrogen 12 mg/dL (7-18) Creatinine 0.7 MG/DL (0.55-1.30) Estimat Glomerular Filtration Rate > 60 mL/min (>60) Glucose Level 90 MG/DL (74-106) Calcium Level 10.3 MG/DL (8.5-10.1) H Intake and Output 09/02/18 09/03/18 19:00 07:00 Intake Total 1054 ml Balance 1054 ml Intake Oral 829 ml IV Total 225 ml # Voids 3 Objective PHYSICAL EXAMINATION: GENERAL: The patient is awake, responsive, and in no acute distress. HEAD AND NECK: Pupils are reactive to light. Extraocular movements are intact. Neck was supple. No JVD. LUNGS: Good air entry. No wheezing or rales. HEART: S1, S2. Distant heart sounds. No murmurs. No gallops. ABDOMEN: Soft, nondistended, and nontender. Mildly obese. The patient has a midline surgical scar, multiple, one was noted, well healed. EXTREMITIES: No cyanosis, clubbing, or edema. NEUROLOGIC: INSULATION WORKER II through XII grossly intact. Motor is 5/5 in all extremities. Gait is not assessed due to the patient's status at this time. RECTAL: Refused and deferred. GENITOURINARY: Refused and deferred. PSYCHIATRIC: Mood and affect is intact Assessment/Plan Assessment/Plan ASSESSMENT: 1. Atypical chest pain, possibly due to the acid reflux or gastroesophageal reflux disease. 2. Alcohol intoxication. 3. Hypertension. 4. Failure to thrive. PLAN: 1. Admit the patient to Med/Surg. 2. We will follow up with Dr. Rodney, Pulmonary Critical Care. 3. Aggressive IV hydration. 4. Alcohol withdrawal precaution. 7. PT and OT evaluation. Juan F Molina MD Sep 03, 2018 16:11
--- NOTE | 2018-09-03 19:40 | NUR ---
HAND-OFF: Report given to Yessy LEW.
[2018-09-03 20:00] VITALS: BP 124/76
--- NOTE | 2018-09-03 20:14 | NUR ---
NURSE NOTES: Patient is in bed, aaox3. No signs of acute distress. Pain 3/10 left shoulder. Bed low, bed alarm on, call light within reach.
--- NOTE | 2018-09-03 23:34 | Neurology Progress Note ---
Interim History Interim History ROS Limited/Unobtainable: No Objective Physical Exam Last Vital Signs Date Time Temp Pulse Resp B/P (MAP) Pulse Ox O2 Delivery O2 Flow Rate FiO2 09/03/18 21:00 Room Air 09/03/18 20:00 98.9 84 18 124/76 (92) 100 Laboratory Tests Test 09/03/18 04:50 White Blood Count 5.1 K/UL (4.8-10.8) Red Blood Count 4.90 M/UL (4.20-5.40) Hemoglobin 12.7 G/DL (12.0-16.0) Hematocrit 40.2 % (37.0-47.0) Mean Corpuscular Volume 82 FL (80-99) Mean Corpuscular Hemoglobin 25.8 PG (27.0-31.0) L Mean Corpuscular Hemoglobin Concent 31.6 G/DL (32.0-36.0) L Red Cell Distribution Width 13.8 % (11.6-14.8) Platelet Count 252 K/UL (150-450) Mean Platelet Volume 6.3 FL (6.5-10.1) L Neutrophils (%) (Auto) 44.9 % (45.0-75.0) L Lymphocytes (%) (Auto) 40.1 % (20.0-45.0) Monocytes (%) (Auto) 9.2 % (1.0-10.0) Eosinophils (%) (Auto) 3.5 % (0.0-3.0) H Basophils (%) (Auto) 2.3 % (0.0-2.0) H Sodium Level 138 MMOL/L (136-145) Potassium Level 4.3 MMOL/L (3.5-5.1) Chloride Level 102 MMOL/L (98-107) Carbon Dioxide Level 27 MMOL/L (21-32) Anion Gap 9 mmol/L (5-15) Blood Urea Nitrogen 12 mg/dL (7-18) Creatinine 0.7 MG/DL (0.55-1.30) Estimat Glomerular Filtration Rate > 60 mL/min (>60) Glucose Level 90 MG/DL (74-106) Calcium Level 10.3 MG/DL (8.5-10.1) H Rebecca Dyer [email or web address] Sep 03, 2018 23:34
[2018-09-04] VITALS: BP 120/80
[2018-09-04 04:00] VITALS: BP 136/83
[2018-09-04 06:55] LABS: BASOPHILS % (AUTO) 1.3 % (0.0-2.0); EOSINOPHILS % (AUTO) 3.4 % (0.0-3.0); HEMATOCRIT 39.8 % (37.0-47.0); HEMOGLOBIN 12.9 G/DL (12.0-16.0); MEAN CORPUSCULAR VOLUME 82 FL (80-99); NEUTROPHILS % (AUTO) 49.2 % (45.0-75.0); PLATELET COUNT 267 K/UL (150-450); RED BLOOD COUNT 4.86 M/UL (4.20-5.40); RED CELL DISTRIBUTION WIDTH 13.6 % (11.6-14.8); WHITE BLOOD COUNT 4.4 K/UL (4.8-10.8)
[2018-09-04 07:02] LABS: ANION GAP 9 mmol/L (5-15); BLOOD UREA NITROGEN 11 mg/dL (7-18); CALCIUM 9.9 MG/DL (8.5-10.1); CARBON DIOXIDE 27 MMOL/L (21-32); CHLORIDE 101 MMOL/L (98-107); CREATININE 0.7 MG/DL (0.55-1.30); POTASSIUM 3.6 MMOL/L (3.5-5.1); SODIUM 137 MMOL/L (136-145)
--- NOTE | 2018-09-04 07:35 | NUR ---
HAND-OFF: Report given to VIPIN Rosado. Patient stable.
--- NOTE | 2018-09-04 07:46 | NUR ---
NURSE NOTES: Received report from VIPIN Krishnamurthy. Rounding done with outgoing nurse. Patient asleep peacefully. Bed in lowest position, call light within reach. Will continue to monitor.
[2018-09-04 08:00] VITALS: BP 113/62
[2018-09-04] MEDS: Thiamine 100mg tab ORAL SCH (09:10)
--- NOTE | 2018-09-04 10:52 | NUR ---
*-* INSURANCE*-* UPDATED CLINICALS AND REVIEWS HAVE BEEN FAXED TO: SENTH[facility] HURD: TRUONG P- [phone] [phone] f- [phone]...........REVIEW /CLINICAL
[2018-09-04 12:00] VITALS: BP 124/82
--- NOTE | 2018-09-04 12:59 | Pulmonology Progress Note ---
Assessment/Plan Problems: (1) Acute encephalopathy (2) Alcohol abuse (3) Failure to thrive Assessment/Plan no new complains all reviewed doing better dc iv fluids pt/ot neuro evaluation check electrolytes dc home Subjective ROS Limited/Unobtainable: No Constitutional: Reports: no symptoms HEENT: Repors: no symptoms Allergies: Coded Allergies: No Known Allergies (Unverified , 08/31/18) Objective Last 24 Hour Vital Signs Date Time Temp Pulse Resp B/P (MAP) Pulse Ox O2 Delivery O2 Flow Rate FiO2 09/04/18 12:00 97.9 96 18 124/82 (96) 97 09/04/18 09:00 Room Air 09/04/18 08:00 98.5 90 18 113/62 (79) 96 09/04/18 04:00 98.9 91 16 136/83 (100) 97 09/04/18 00:00 98.7 79 18 120/80 (93) 97 09/03/18 21:00 Room Air 09/03/18 20:00 98.9 84 18 124/76 (92) 100 09/03/18 16:00 98.9 79 19 120/76 (91) 100 Intake and Output 09/03/18 09/04/18 19:00 07:00 Intake Total 237 ml Balance 237 ml Intake Oral 237 ml # Voids 1 # Bowel Movements 2 Objective General Appearance: WD/WN Lines, tubes and drains: peripheral HEENT: normocephalic, atraumatic Neck: non-tender, normal alignment Respiratory/Chest: chest wall non-tender, lungs clear Breasts: no masses Cardiovascular/Chest: normal peripheral pulses Genitourinary/Rectal: normal genital exam Extremities: non-tender Skin Exam: normal pigmentation Laboratory Tests 09/04/18 06:15: White Blood Count 4.4L, Red Blood Count 4.86, Hemoglobin 12.9, Hematocrit 39.8, Mean Corpuscular Volume 82, Mean Corpuscular Hemoglobin 26.6L, Mean Corpuscular Hemoglobin Concent 32.4, Red Cell Distribution Width 13.6, Platelet Count 267, Mean Platelet Volume 6.8, Neutrophils (%) (Auto) 49.2, Lymphocytes (%) (Auto) 36.0, Monocytes (%) (Auto) 10.0, Eosinophils (%) (Auto) 3.4H, Basophils (%) ( Auto) 1.3, Sodium Level 137, Potassium Level 3.6, Chloride Level 101, Carbon Dioxide Level 27, Anion Gap 9, Blood Urea Nitrogen 11, Creatinine 0.7, Estimat Glomerular Filtration Rate > 60, Glucose Level 97, Calcium Level 9.9 Current Medications Medications (Trade) Dose Ordered Sig/Sasha Route PRN Reason Start Time Stop Time Status Last Admin Dose Admin Acetaminophen/ Hydrocodone Bitart ([place] 5/325) 1 tab Q6H PRN ORAL Moderate Pain (Pain Scale 4-6) 09/03/18 14:30 09/10/18 14:29 Folic Acid (Folate) 1 mg DAILY ORAL 09/02/18 09:00 10/02/18 08:59 09/04/18 09:10 Lorazepam (Ativan) 1 mg Q6H PRN ORAL For Agitation 09/01/18 10:15 09/08/18 10:14 Pantoprazole (Protonix) 40 mg DAILY ORAL 09/01/18 11:00 10/01/18 10:59 09/04/18 09:10 Thiamine HCl (Vitamin B1) 100 mg DAILY ORAL 09/02/18 09:00 10/02/18 08:59 09/04/18 09:10 Elan Rodney MD Sep 04, 2018 12:59
--- NOTE | 2018-09-04 14:45 | NUR ---
Social Service Note SW met with patient to assess for home safety. Patient is alert, oriented and verbally responsive. Patient states she was drinking with her neighbors when she developed pain in her arm and chest. Patient states her neighbors called 911. Patient states she does drink and has done so for many years. Patient is not interested in referrals and states she will continue to drink. Patient denies drinking daily but admits it is something she should one day stop. Patient states she lives alone and has a FWW at home and uses as needed. Patient would like to return home. Patient provided her address [address] [place] [address] [id number], . Patient provided her ex Dagoberto Donohue [phone] as her emergency contacted and asked SW to inform him of her discharge home. Message left for Mr. Donohue. Patient states she hasn't followed up with her PCP since she moved from [place], Dr. Bosch [phone]. PT evaluated patient and indicated safety to return home. Patient may return home via taxi. MARIAN discussed with primary nurse and charge nurse.
--- NOTE | 2018-09-04 15:47 | NUR ---
CASE MANAGEMENT:REVIEW 09/03/18 SI: ACUTE ENCEPHALOPATHY ALCOHOL ABUSE. FTT 98.5 114 19 131/78 96% ON RA IS: FOLATE PO QD THIAMINE PO QD PROTONIX PO QD : MED/SURG STATUS 3 EAST
--- NOTE | 2018-09-04 15:50 | NUR ---
NURSE NOTES: Discharge instruction was given. Belongings checked with pt. Patient discharged by herself in stable condition.
--- NOTE | 2018-09-05 10:19 | NUR ---
*-* INSURANCE*-* UPDATED CLINICALS AND REVIEWS HAVE BEEN FAXED TO: [facility] HURD: TRUONG P- [id number] [phone] f- [phone]...........REVIEW /CLINICAL
--- NOTE | 2018-09-05 15:52 | Discharge Summary ---
Discharge Summary Discharge Summary _ DATE OF ADMISSION: 09/01/2018 DATE OF DISCHARGE: 2018 DISCHARGED BY: Dr. Blackburn REASON FOR ADMISSION: 68 years old female with unknown past medical history presented to ED by paramedics enrollment management manager with acute alcohol intoxication. Patient was found altered with EtOH level 350 patient was also complaining with chest pain EKG revealed sinus rhythm with left atrial enlargement and nonspecific ST-T wave changes chest x-ray revealed no acute cardiopulmonary pathology. Troponin was negative. Urinalysis is negative for evidence of UTI urine toxicology screen was negative no leukocytosis stable renal parameters and electrolytes glucose 92 serum alcohol level 345 CONSULTANTS: neurologist Dr. Goode pulmonary [facility] COURSE: Patient admitted. Patient started on IV fluids with thiamine and folic acid. GI prophylaxis provided. Mental status was closely monitored. Renal parameters and electrolytes were closely monitored , nephrotoxins were avoided . Electrolyte/magnesium corrected . No further chest pain . Chest pain was likely atypical due to GERD or acid reflux. Anxiolytic were on board as needed. Symptomatic care provided. Per nutritional assessment , patient was at moderate risk for malnutrition. Nutritional recommendation implemented in plan of care. Patient was counseled on abstinence from ETOH . dairy cattle farm worker met with patient to access for home safety. Patient admitted to ETOH dependency for years. Patient was not interested in referrals and stated that she would continue drinking. Patient lives at home alone and had a front wheel walker , which she uses as needed. Patient preferred to return home. Acute encephalopathy resolved, was likely due to acute alcohol intoxication. Blood pressure was closely monitored and remained stable without any antihypertensive. LFT and bilirubin remained stable. Patient clinically stabilized and was ready for discharge home. FINAL DIAGNOSES: Acute encephalopathy due to ETOH Acute alcohol intoxication Hypertension Atypical chest pain , likely due to GERD/ acid reflux Hypomagnesemia Failure to thrive, likely due to alcohol dependency DISCHARGE MEDICATIONS: See Medication Reconciliation list. DISCHARGE INSTRUCTIONS: Patient was discharged home . Follow up with primary care provider in one week. I have been assigned to dictate discharge summary for this account. I was not involved in the patient's management. Charlee Persaud NP Sep 05, 2018 15:52
== END 2018-09-04 15:50 | disposition home or self-care (01) | DRG 775 ==
LOC: EDBD 21:10 → EMR 21:30 → 3E 09-01 04:58 → EDBEDREQ 09-01 05:12
DX: F10.229 Alcohol dependence with intoxication, unspecified (principal); G93.49 Other encephalopathy; K21.9 Gastro-esophageal reflux disease without esophagitis; R62.7 Adult failure to thrive; I10 Essential (primary) hypertension; R07.89 Other chest pain; E83.42 Hypomagnesemia; Z68.20 Body mass index [BMI] 20.0-20.9, adult
CPT/HCPCS: 36415; 70450; 71045; 80048; 80053; 80307; 80329; 81003; 83735; 84100; 84484; 85025; 93005; 96361; 96365; 96375; 99285; J2765

== ENCOUNTER 2018-09-20 03:14 | Emergency (ER) | payer MEDICARE, OTHER ==
[~2018-09-20] VITALS: Ht 162.6 cm; Wt 54.4 kg
--- NOTE | 2018-09-20 03:20 | NUR ---
ED Nurse Note: pt brought in by [facility] from home c/o chest pain & alcohol intoxication, per EMS report, ems was dispatched and pt was c/o chest pain initially but later stated she just drank four bottles of beer. pt currently states her heart hurts but denies radiation, admits that she drank alcohol. pt AA&ox4, gcs=15, skin warm and dry, resp even and unlabored on RA, -n/v/d, ambulates w/ steady gait, vss, NSR on environmental monitoring technician, will cont monitor.
--- NOTE | 2018-09-20 03:32 | Emergency Room Report ---
History of Present Illness General Chief Complaint: Upper Extremity Injury Source: Patient Present Illness HPI This is a 68-year-old female with history hypertension. She also has a history of alcohol abuse and anxiety. She presents with chief complaint of chest pain. She called EMS. This is a chronic problem for her. Per EMS, she been calling 911 for chest pain multiple time. She was just here a couple weeks ago for the same. Was discharged home. Vision point to her chest for chest pain. No radiation. No shortness of breath. No diaphoresis. The demented better. Concern for movement it worse. Denies any other complaint. Allergies: Coded Allergies: No Known Allergies (Unverified , 09/20/18) Patient History Past Medical History: see triage record, old chart reviewed, HTN, psych hx Past Surgical History: none Pertinent Family History: none Social History: Denies: smoking Now: No Immunizations: other Reviewed Nursing Documentation: PMH: Agreed; PSxH: Agreed Nursing Documentation-PMH Hx Hypertension: Yes History Of Psychiatric Problem: Yes - ANXIETY Hx Seizures: Yes Hx Weakness: Yes - generalized Review of Systems Eye: Denies: eye pain, blurred vision ENT: Denies: ear pain, nose congestion, throat swelling Respiratory: Denies: cough, shortness of breath Cardiovascular: Reports: chest pain; Denies: palpitations Gastrointestinal: Denies: abdominal pain, diarrhea, nausea, vomiting Musculoskeletal: Denies: back pain, joint pain Skin: Denies: rash Neurological: Denies: headache, numbness Endocrine: Denies: increased thirst, increased urine Hematologic/Lymphatic: Denies: easy bruising All Other Systems: negative except mentioned in HPI Physical Exam Vital Signs Date Time Temp Pulse Resp B/P (MAP) Pulse Ox O2 Delivery O2 Flow Rate FiO2 09/20/18 03:16 98.1 86 16 100 Room Air vitals unremarkable Sp02 EP Interpretation: reviewed, normal General Appearance: well appearing, no apparent distress, alert, other - Intoxicated Head: normocephalic, atraumatic Eyes: bilateral eye PERRL, bilateral eye EOMI ENT: hearing grossly normal, normal pharynx Neck: full range of motion, supple, no meningismus Respiratory: chest non-tender, lungs clear, normal breath sounds Cardiovascular #1: regular rate, rhythm, no murmur Gastrointestinal: normal bowel sounds, non tender, no mass, no organomegaly, no bruit, non-distended Musculoskeletal: back normal, gait/station normal, normal range of motion Psychiatric: mood/affect normal Skin: warm/dry Medical Decision Making Diagnostic Impression: Primary Impression: Alcohol intoxication Qualified Codes: F10.920 - Alcohol use, unspecified with intoxication, uncomplicated Additional Impression: Chest pain Qualified Codes: R07.9 - Chest pain, unspecified ER Course Patient presents with chronic chest pain. This is probably secondary to alcohol intoxication and anxiety. No evidence of ACS, PE, dissection. We'll observe until clinical sobriety and discharge in the morning. Patient is not homeless. Last Vital Signs Date Time Temp Pulse Resp B/P (MAP) Pulse Ox O2 Delivery O2 Flow Rate FiO2 09/20/18 03:16 98.1 86 16 100 Room Air Status: improved Disposition: HOME, SELF-CARE Condition: Stable Scripts Unable to Obtain Active Prescriptions or Reported Meds Additional Instructions: abstain from alcohol. Go to rehab. Follow up with your doctor in 7 days. Return if worse. Parvez Shepherd MD September 20, 2018 03:32
[2018-09-20 03:47] VITALS: BP 118/86
--- NOTE | 2018-09-20 04:25 | NUR ---
ED Nurse Note: pt c/o left shoulder pain, pt req medication, ERMD notified, received motrin 600mg one time dose via po received
[2018-09-20 05:21] VITALS: BP 121/86
--- NOTE | 2018-09-20 05:21 | NUR ---
ED Nurse Note: pt sleeping at this time, vss, resp even and unlabored on RA, -n/v/d, will cont monitor.
--- NOTE | 2018-09-20 05:45 | NUR ---
ED Nurse Note: pt now awake and able to answer questions, req to go home, pt states she is hungry and req food, sandwich and juice given.
--- NOTE | 2018-09-20 06:47 | NUR ---
ED Nurse Note: called taxi for confirmation eta 10-15 min.
[2018-09-20 07:18] VITALS: BP 128/67
--- NOTE | 2018-09-20 07:18 | NUR ---
ED Nurse Note: pt cleared to be d/c per ERMD, pt discharge and aftercare instruction provided, pt advised to stop drinking alcohol, pt advised to follow up with pcp or return to ed if changes in condition, pt vss, resp even and unlabored on RA, pt provided w/ taxi. left w/ all belongings. education done via discussion and handout.
== END 2018-09-20 07:18 | disposition home or self-care (01) ==
LOC: EDUNIT# 03:14 → EDBD 03:14 → EMR 03:39
DX: F10.129 Alcohol abuse with intoxication, unspecified (principal); R07.9 Chest pain, unspecified; I10 Essential (primary) hypertension; F41.9 Anxiety disorder, unspecified; G40.909 Epilepsy, unspecified, not intractable, without status epilepticus
CPT/HCPCS: 84484; 99282

== ENCOUNTER 2018-10-08 14:57 | Emergency (ER) | payer MEDICARE, OTHER ==
[~2018-10-08] VITALS: Ht 167.6 cm; Wt 68.0 kg
[2018-10-08 15:04] VITALS: BP 119/71
--- NOTE | 2018-10-08 15:04 | NUR ---
ED Nurse Note: PT FROM HOME BROUGHT IN BY AMBULANCE DUE TO ALCOHOL INTOXICATION. EMS REPORTS PT DRINKING AND PT INTIALLY STATES SHE HAD EPISODES OF SEIZURE TODAY. PT CAME IN AAO X1, VERY TALKATIVE, NO RESPIRATORY DISTRESS, AND NOW DENIES HAVING SEIZURE.
--- NOTE | 2018-10-08 15:11 | Emergency Room Report ---
History of Present Illness General Chief Complaint: Alcohol Intoxication Source: Patient Present Illness HPI Patient transported by EMS. She called them because she felt that she might be having seizures. She's been drinking alcohol today. She supposed be taking Dilantin but apparently has missed some doses. She denies any incontinence or trauma. She is complaining about some left-sided chest pain and feels her heart pounding. Accu-Chek was performed and normal in the field. The patient denies fevers, chills, nausea, vomiting, diarrhea, dysuria. According to EMS they frequently are called to this patient and she has a history of alcohol abuse. She lives by herself. She was admitted August for failure to thrive. A child welfare social worker consultation was done 09/04: Social Service Note MARIAN met with patient to assess for home safety. Patient is alert, oriented and verbally responsive. Patient states she was drinking with her neighbors when she developed pain in her arm and chest. Patient states her neighbors called 911. Patient states she does drink and has done so for many years. Patient is not interested in referrals and states she will continue to drink. Patient denies drinking daily but admits it is something she should one day stop. Patient states she lives alone and has a FWW at home and uses as needed. Patient would like to return home. Patient provided her address [address] [place] [address] [phone], . Patient provided her ex Dagoberto Donohue [phone] as her emergency contacted and asked SW to inform him of her discharge home. Message left for Mr. Donohue. Patient states she hasn't followed up with her PCP since she moved from [place], Dr. Bosch [phone]. PT evaluated patient and indicated safety to return home. Patient may return home via taxi. MARIAN discussed with primary nurse and charge nurse. Patient repeat eval 09/20 for alcohol intoxication. Observed and discharged to home. Allergies: Coded Allergies: No Known Allergies (Unverified , 09/20/18) Patient History Past Medical History: see triage record Social History: Reports: alcohol use Social History Narrative lives by herself Last Menstrual Period: n/a Reviewed Nursing Documentation: PMH: Agreed; PSxH: Agreed Nursing Documentation-PMH Past Medical History: No History, Except For Hx Hypertension: Yes Hx Seizures: Yes Hx Weakness: Yes - generalized Review of Systems All Other Systems: negative except mentioned in HPI Physical Exam Vital Signs Date Time Temp Pulse Resp B/P (MAP) Pulse Ox O2 Delivery O2 Flow Rate FiO2 10/08/18 14:54 98.2 104 18 119/71 (87) 98 Room Air Sp02 EP Interpretation: reviewed, normal General Appearance: well appearing, no apparent distress, other - Slurring her words and alcohol on breath Head: normocephalic, atraumatic Eyes: bilateral eye PERRL, bilateral eye abnormal EOM - Disconjugate gaze, bilateral eye Scleral Injection ENT: normal pharynx, normal voice, moist mucus membranes - No tongue macerations Neck: supple, no bony tend Respiratory: lungs clear, normal breath sounds, other - Minimal chest wall tenderness Cardiovascular #1: regular rate, rhythm Cardiovascular #2: 2+ radial (R) Gastrointestinal: normal inspection, normal bowel sounds, non tender, no mass, non-distended Musculoskeletal: back normal, normal range of motion, other - Ataxic gait Neurologic: alert, motor strength/tone normal, DTRs symmetric, sensory intact, other - Ataxia and nystagmus, oriented - X2 Psychiatric: mood/affect normal - Poor insight Skin: normal inspection, warm/dry Medical Decision Making Diagnostic Impression: Primary Impression: Alcohol intoxication Qualified Codes: F10.929 - Alcohol use, unspecified with intoxication, unspecified Additional Impressions: Noncompliance with medications Hyperkalemia ER Course Patient presents with alleged seizures and chest pain. She also claims that she 's not compliant with her Dilantin. Differential includes acute myocardial infarction, chest contusion, pneumonia, chest wall strain amongst others. In addition it is possible that she could've had a seizure although with alcohol on board this may be less likely. She has a nonfocal neurologic exam at this time and CT is not indicated. The patient will be evaluated with EKG, chest x- ray and labs including a Dilantin level. She'll be observed on a white sourer. She'll be given Tylenol for the chest pain. EKG without injury. CXR no infiltrate. K elevated. Dilantin 1. BAL = 331. Dilantin given IV. Kayexelate given orally. Observed. Still unsteady on feet. Signed out to Dr. Harris. Laboratory Tests Test 10/08/18 15:20 White Blood Count 6.1 K/UL (4.8-10.8) Red Blood Count 4.55 M/UL (4.20-5.40) Hemoglobin 11.8 G/DL (12.0-16.0) L Hematocrit 36.6 % (37.0-47.0) L Mean Corpuscular Volume 80 FL (80-99) Mean Corpuscular Hemoglobin 25.9 PG (27.0-31.0) L Mean Corpuscular Hemoglobin Concent 32.2 G/DL (32.0-36.0) Red Cell Distribution Width 14.2 % (11.6-14.8) Platelet Count 199 K/UL (150-450) Mean Platelet Volume 7.5 FL (6.5-10.1) Neutrophils (%) (Auto) 50.8 % (45.0-75.0) Lymphocytes (%) (Auto) 36.7 % (20.0-45.0) Monocytes (%) (Auto) 7.9 % (1.0-10.0) Eosinophils (%) (Auto) 2.8 % (0.0-3.0) Basophils (%) (Auto) 1.7 % (0.0-2.0) Urine Color Pale yellow Urine Appearance Clear Urine pH 5 (4.5-8.0) Urine Specific [place] 1.005 (1.005-1.035) Urine Protein Negative (NEGATIVE) Urine Glucose (UA) Negative (NEGATIVE) Urine Ketones Negative (NEGATIVE) Urine Blood Negative (NEGATIVE) Urine Nitrite Negative (NEGATIVE) Urine Bilirubin Negative (NEGATIVE) Urine Urobilinogen Normal MG/DL (0.0-1.0) Urine Leukocyte Esterase Negative (NEGATIVE) Sodium Level 141 MMOL/L (136-145) Potassium Level 5.8 MMOL/L (3.5-5.1) H Chloride Level 108 MMOL/L (98-107) H Carbon Dioxide Level 22 MMOL/L (21-32) Anion Gap 11 mmol/L (5-15) Blood Urea Nitrogen 15 mg/dL (7-18) Creatinine 0.6 MG/DL (0.55-1.30) Estimate Glomerular Filtration Rate > 60 mL/min (>60) Glucose Level 107 MG/DL (74-106) H Calcium Level 9.7 MG/DL (8.5-10.1) Total Bilirubin 0.4 MG/DL (0.2-1.0) Aspartate Amino Transferase (AST) 46 U/L (15-37) H Alanine Aminotransferase (ALT) 25 U/L (12-78) Alkaline Phosphatase 95 U/L (46-116) Total Creatine Kinase 216 U/L (26-308) Troponin I 0.000 ng/mL (0.000-0.056) Total Protein 9.1 G/DL (6.4-8.2) H Albumin 4.1 G/DL (3.4-5.0) Globulin 5.0 g/dL Albumin/Globulin Ratio 0.8 (1.0-2.7) L Salicylates Level 1.8 ug/mL (2.8-20) L Urine Opiates Screen Negative (NEGATIVE) Acetaminophen Level < 2 MCG/ML (10-30) L Urine Barbiturates Screen Negative (NEGATIVE) Phenytoin (Dilantin) Level 1.0 ug/mL (10-20) L Phencyclidine (PCP) Screen Negative (NEGATIVE) Urine Amphetamines Screen Negative (NEGATIVE) Urine Benzodiazepines Screen Negative (NEGATIVE) Urine Cocaine Screen Negative (NEGATIVE) Urine Marijuana (THC) Screen Negative (NEGATIVE) Serum Alcohol 331 mg/dL EKG Diagnostic Results Rate: normal Rhythm: NSR ST Segments: no acute changes Rhythm Strip Diag. Results EP Interpretation: yes Rhythm: no PVC's, no ectopy, other - Heart rate 105 Chest X-Ray Diagnostic Results Chest X-Ray Diagnostic Results : Chest X-Ray Ordered: Yes # of Views/Limited/Complete: 1 View Indication: Other EP Interpretation: Yes Interpretation: no consolidation, no effusion, no pneumothorax Impression: No acute disease Electronically Signed by: Electronically signed by Kevin North MD Last Vital Signs Date Time Temp Pulse Resp B/P (MAP) Pulse Ox O2 Delivery O2 Flow Rate FiO2 10/09/18 00:59 95 19 133/69 98 Room Air 10/08/18 22:52 98.5 3.0 Status: improved Disposition: HOME, SELF-CARE Condition: Improved Scripts Unable to Obtain Active Prescriptions or Reported Meds Kevin North MD Oct 08, 2018 15:11
--- NOTE | 2018-10-08 15:20 | NUR ---
ED Nurse Note: COLLECTED BLOOD AND URINE AT THIS TIME.
[2018-10-08 15:48] LABS: ANION GAP 11 mmol/L (5-15); APPEARANCE,URINE CLEAR; BASOPHILS % (AUTO) 1.7 % (0.0-2.0); BILIRUBIN, URINE NEGATIVE (NEGATIVE); BLOOD UREA NITROGEN 15 mg/dL (7-18); CALCIUM 9.7 MG/DL (8.5-10.1); CARBON DIOXIDE 22 MMOL/L (21-32); CHLORIDE 108 MMOL/L (98-107); COLOR,URINE PALE YELLOW; CREATININE 0.6 MG/DL (0.55-1.30); EOSINOPHILS % (AUTO) 2.8 % (0.0-3.0); GLUCOSE, URINE (UA) NEGATIVE (NEGATIVE); HEMATOCRIT 36.6 % (37.0-47.0); HEMOGLOBIN 11.8 G/DL (12.0-16.0); KETONES,URINE NEGATIVE (NEGATIVE); LEUKOCYTE ESTERASE ,URINE NEGATIVE (NEGATIVE); LYMPHOCYTES % (AUTO) 36.7 % (20.0-45.0); MEAN CORPUSCULAR VOLUME 80 FL (80-99); MONOCYTES % (AUTO) 7.9 % (1.0-10.0); NEUTROPHILS % (AUTO) 50.8 % (45.0-75.0); NITRITE,URINE NEGATIVE (NEGATIVE); PH,URINE 5 (4.5-8.0); PLATELET COUNT 199 K/UL (150-450); POTASSIUM 5.8 MMOL/L (3.5-5.1); PROTEIN,URINE NEGATIVE (NEGATIVE); RED BLOOD COUNT 4.55 M/UL (4.20-5.40); RED CELL DISTRIBUTION WIDTH 14.2 % (11.6-14.8); SODIUM 141 MMOL/L (136-145); UROBILINOGEN,URINE NORMAL MG/DL (0.0-1.0); WHITE BLOOD COUNT 6.1 K/UL (4.8-10.8)
[2018-10-08 15:54] LABS: ALANINE AMINOTRANSFERASE 25 U/L (12-78); ALBUMIN 4.1 G/DL (3.4-5.0); ALBUMIN/GLOBULIN RATIO 0.8 (1.0-2.7); ALKALINE PHOSPHATASE 95 U/L (46-116); ASPARTATE AMINO TRANSFERASE 46 U/L (15-37); BILIRUBIN,TOTAL 0.4 MG/DL (0.2-1.0); CREATINE KINASE 216 U/L (26-308)
[2018-10-08] MEDS ORDERED: Phenytoin 500 MG in NS 110 ML IVPB STA (16:06)
[2018-10-08] MEDS ORDERED: Sodium Polystyrene Sulfonate 15gm Powder ORAL ONE (16:30)
[2018-10-08 17:00] VITALS: BP 122/80
--- NOTE | 2018-10-08 18:00 | NUR ---
ED Nurse Note: PT IS CALMER AND MORE RELAXED AT THIS TIME. AAO X4 AND FOLLOWS COMMANDS. VSS.
--- NOTE | 2018-10-08 18:45 | NUR ---
ED Nurse Note: DR INDIGO LAGUERRE FOR PT TO HAVE ORAL INTAKE. SANDWICH AND JUICE GIVEN TO PT. VSS.
[2018-10-08 18:59] VITALS: BP 116/66
--- NOTE | 2018-10-08 19:07 | NUR ---
HAND-OFF: Report given to VITO LEW.
--- NOTE | 2018-10-08 19:10 | NUR ---
ED Nurse Note: PT VSS AT THE MOMENT, PT RESTING BED, SHOWS NO SIGNS OF ACUTE DISTRESS.
--- NOTE | 2018-10-08 20:23 | NUR ---
Lynda barone in EDM - 10/08/18 at 2253 by JOSE MARIA ED Nurse Note: pt states that she doesnt feel sober enough to leave and wants to rest in bed
[2018-10-08 20:54] VITALS: BP 119/68
--- NOTE | 2018-10-08 20:59 | NUR ---
ED Nurse Note: PT IS AWAKE AOX4, ON ROOM AIR, PT WAS ASSISTED TO URINATE IN BED MAGALLANES. PT SHOWS NO ACUTE SIGNS OF DISTRESS AT THE MOMENT.
--- NOTE | 2018-10-08 21:23 | NUR ---
ED Nurse Note: pt states that she doesnt feel sober enough to leave and wants to rest in bed
--- NOTE | 2018-10-08 22:30 | NUR ---
ED Nurse Note: pt in bed asleep resting, blankets provided.
[2018-10-08 22:52] VITALS: BP 124/67
--- NOTE | 2018-10-08 23:40 | NUR ---
HAND-OFF: Report given to VIPIN CASILLAS.
--- NOTE | 2018-10-08 23:45 | NUR ---
ED Nurse Note: Report recevied from Vanessa LEW. Pt calmly & comfortably asleep. media monitor attached. VSS. Bed in lowest locked position. Side rails up x2. Fall & safety precautions maintained.
[2018-10-09 00:59] VITALS: BP 133/69
--- NOTE | 2018-10-09 01:00 | NUR ---
ED Nurse Note: Pt continues asleep. Even unlabored breathing noted. No acute distress.
[2018-10-09 03:33] VITALS: BP 142/66
--- NOTE | 2018-10-09 03:33 | NUR ---
ED Nurse Note: Pt provided with bedpan. Void x1. Pt able to stand and take a few steps with miniminal assitance while bedsheets were changed. Pt provided with new clean gown and blankets, along with water. Pt back to bed with no acute distress noted. Will continue to maintain fall & safety precautions. Side rails up x2.
[2018-10-09 05:52] VITALS: BP 138/88
[2018-10-09 06:19] VITALS: BP 138/88
--- NOTE | 2018-10-09 06:20 | NUR ---
ED Nurse Note: Patient was evaluated, treated and discharged with aftercare instructions by JAVAN. Pt verbalized understanding, no questions at present. A&O x4. Ambulatory with steady gait. Leaving with all belongings on hand via taxi. IV & ID band removed per protocol.
--- NOTE | 2018-10-09 10:25 | Diagnostic Imaging Report ---
Indication chest pain Comparison: 08/31/2018 A single view chest radiograph was obtained. Findings: Cardiomegaly is noted. No definite pulmonary edema seen at this time. No infiltrate identified. Bones are osteopenic. IMPRESSION: No acute disease
--- NOTE | 2018-10-09 19:24 | Cardiology Report ---
APPROVED REPORT EKG Measurement Heart [id number] AR [id number] Sinus tachycardia Possible Left atrial enlargement Borderline ECG
[2019-02-20] MEDS ORDERED: DILANTIN100 MG ORAL (04:53)
[2019-02-20] MEDS ORDERED: IBUPROFEN600 MG ORAL (06:37)
== END 2018-10-09 06:32 | disposition home or self-care (01) ==
LOC: EDBD 14:57 → EMR 15:41
DX: F10.929 Alcohol use, unspecified with intoxication, unspecified (principal); Z91.14 Patient's other noncompliance with medication regimen; E87.5 Hyperkalemia; G40.909 Epilepsy, unspecified, not intractable, without status epilepticus; I10 Essential (primary) hypertension
CPT/HCPCS: 36415; 71045; 80053; 80185; 80307; 81003; 82550; 84484; 85025; 93005; 96361; 96365; 99284; G0480; J1165; 80329

== ENCOUNTER 2019-03-29 14:44 | Emergency (ER) | payer MEDICARE, OTHER ==
[~2019-03-29] VITALS: Ht 162.6 cm; Wt 54.4 kg
[~2019-03-29 14:44] MED LIST: DILANTIN100 MG ORAL; IBUPROFEN600 MG ORAL
[2019-03-29 15:00] VITALS: BP 106/67
--- NOTE | 2019-03-29 15:09 | NUR ---
ED Nurse Note: Patient arrived from home by ambulance. Per EMS, patient had an unwitnessed fall at home. Neighbor's called after finding the patient on the ground outside. Per EMS, patient drank 3 tall cans of alcohol. Patient AxO x 2, cooperative, but appears to be intoxicated. No limitations in limb movement noted. Patient resting in bed, no acute distress noted. Bed in lowest position.
[2019-03-29] MEDS ORDERED: Acetaminophen 500mg (ES) tab ORAL ONE (16:00)
--- NOTE | 2019-03-29 16:37 | Emergency Room Report ---
History of Present Illness General Chief Complaint: Upper Extremity Injury Source: Patient, EMS Present Illness HPI 68-year-old female presents to the emergency department complaining of 9 out of 10 severity localized left shoulder pain status post mechanical fall this morning. Pt. describes slipping and catching herself with her left arm. She denies falling all the way to the ground. Patient reports having some EtOH prior to fall. Patient denies hitting her head or having loss of consciousness. She denies open wounds or bleeding. Patient denies taking blood thinning medications. She denies midline neck or back pain. Patient denies paresthesias or weakness/loss of gross motor movements in the affected extremity. Patient is right-hand dominant. Pt. states she was ambulatory after the fall. No other aggravating or relieving factors. Pt. denies dizziness, SOB , CP or palpitations. Allergies: Coded Allergies: No Known Allergies (Unverified , 09/20/18) Patient History Past Medical History: see triage record Past Surgical History: none Pertinent Family History: none Last Menstrual Period: na Reviewed Nursing Documentation: PMH: Agreed; PSxH: Agreed Nursing Documentation-PMH Past Medical History: No History, Except For Hx Cardiac Problems: Yes - anemia Hx Hypertension: Yes Hx Seizures: Yes Hx Weakness: Yes - generalized Review of Systems All Other Systems: negative except mentioned in HPI Physical Exam Vital Signs Date Time Temp Pulse Resp B/P (MAP) Pulse Ox O2 Delivery O2 Flow Rate FiO2 03/29/19 14:40 97.5 74 18 106/67 (80) 97 Room Air Sp02 EP Interpretation: reviewed, normal General Appearance: no apparent distress, alert, GCS 15, non-toxic Head: normocephalic, atraumatic Eyes: bilateral eye normal inspection, bilateral eye PERRL ENT: hearing grossly normal, normal voice Neck: full range of motion, no bony tend Respiratory: chest non-tender, lungs clear, normal breath sounds, speaking full sentences Cardiovascular #1: regular rate, rhythm, normal capillary refill Gastrointestinal: non tender, soft Musculoskeletal: back normal, gait/station normal, normal range of motion, tender - TTP to the anterior and lateral aspect of the left shoulder. FROM with some pain, no clicking, no palpable step off, no obvious deformity, NVI Neurologic: alert, oriented x3, responsive, motor strength/tone normal, sensory intact, normal gait, speech normal, grossly normal Psychiatric: judgement/insight normal Skin: normal color, normal inspection Lymphatic: no adenopathy Medical Decision Making PA Attestation Dr. Tyson is my supervising Physician whom patient management has been discussed with. Diagnostic Impression: Primary Impression: Shoulder pain, left Qualified Codes: M25.512 - Pain in left shoulder Additional Impression: Muscle strain ER Course [id number] female presents to the emergency department complaining of 9 out of 10 severity localized left shoulder pain status post mechanical fall this morning. Pt. describes slipping and catching herself with her left arm. She denies falling all the way to the ground. Patient reports having some EtOH prior to fall. Patient denies hitting her head or having loss of consciousness. She denies open wounds or bleeding. Patient denies taking blood thinning medications. She denies midline neck or back pain. Patient denies paresthesias or weakness/loss of gross motor movements in the affected extremity. Patient is right-hand dominant. Pt. states she was ambulatory after the fall. No other aggravating or relieving factors. Pt. denies dizziness, SOB , CP or palpitations. Ddx considered but are not limited to Fracture, dislocation, contusion, Sprain/ Strain/Spasm, acute head injury just to name a few. Vital signs: are WNL, pt. is afebrile H&PE are most consistent with musculoskeletal injury will perform imaging to r/ o fractures/dislocations. ORDERS: - X-ray Shoulder Left 3 views - negative for fx, Dislocation, or significant soft tissue injury, per preliminary read in ED, and signed by CAR Lee , my supervising physician has reviewed, and agrees with my interpretation. ED INTERVENTIONS: - Tylenol PO - Lidoderm TP -I do not identify an emergent condition at this time. With current presentation , pt. is stable for close outpatient follow up and conservative treatment. D/ w pt. to return promptly to ED with worsening or new symptoms.- Pt. verbalizes' understanding and agreement with proposed treatment plan.proposed treatment plan. DISCHARGE: At this time pt. is stable for d/c to home. Will provide printed patient care instructions, and any necessary prescriptions. Care plan and follow up instructions have been discussed with the patient prior to discharge. Other X-Ray Diagnostic Results Other X-Ray Diagnostic Results : X-Ray ordered: Left Shoulder # of Views/Limited Vs Complete: 3 View Indication: Pain EP Interpretation: Yes PA Xray: Interpretation reviewed, by supervising MD, and agrees with findings. Interpretation: no dislocation, no soft tissue swelling, no fractures Impression: No acute disease Electronically Signed by: Cat Lee PA-C Last Vital Signs Date Time Temp Pulse Resp B/P (MAP) Pulse Ox O2 Delivery O2 Flow Rate FiO2 03/29/19 14:40 97.5 74 18 106/67 (80) 97 Room Air Disposition: HOME, SELF-CARE Condition: Stable Scripts Acetaminophen* (TYLENOL EXTRA STRENGTH*) 500 Mg Tablet 500 MG ORAL Q6H, #20 TAB 0 Refills Prov: Cat Lee 03/29/19 Lidocaine Patch* (Lidoderm Patch*) 1 Each Adh..patch 1 PATCH TOPIC DAILY, #30 PATCH 0 Refills Patch(es) may remain in place for up to 12 hours in any 24-hour period. Prov: Cat Lee 03/29/19 Referrals: NOT CHOSEN [facility]/MD,REFERRING (PCP) Patient Instructions: Shoulder Pain, [id number], Shoulder Sprain Additional Instructions: Take medications as directed. Follow up with a Primary Care Provider in 3-5 days, even if your symptoms have resolved. --Please review list of primary care clinics, if you do not already have a primary care provider Return sooner to ED if new symptoms occur, or current symptoms become worse. - Please note that this Emergency Department Report was dictated using FREEjitoccupational health coordinator technology software, occasionally this can lead to erroneous entry secondary to interpretation by the dictation equipment. Cat Lee Mar 29, 2019 16:37
[2019-03-29 16:50] VITALS: BP 111/68
[2019-03-29] MEDS ORDERED: TYLENOL EXTRA500 MG ORAL (16:57)
[2019-03-29] MEDS ORDERED: LIDODERM700 M1 TOPIC (16:57)
--- NOTE | 2019-03-29 17:03 | NUR ---
ED Nurse Note: Patient resting in bed, no acute distress.
[2019-03-29 17:40] VITALS: BP 117/75
[2019-03-29 17:45] VITALS: BP 117/78
--- NOTE | 2019-03-30 10:05 | Diagnostic Imaging Report ---
Indication: Right shoulder pain Technique: 3 views of the right shoulder Comparison: none Findings: No acute fractures. No dislocations. The joint spaces are preserved. The bones appear somewhat osteopenic. Impression: No acute process
--- NOTE | 2019-03-30 10:06 | Diagnostic Imaging Report ---
Indication: Left shoulder pain Technique: 3 views of the left shoulder Comparison: none Findings: No acute fractures. No dislocations. The joint spaces are preserved Impression: Negative
== END 2019-03-29 17:45 | disposition home or self-care (01) ==
LOC: EDBD 14:44 → EMR 15:30
DX: S46.912A Strain of unspecified muscle, fascia and tendon at shoulder and upper arm level, left arm, initial encounter (principal); M25.512 Pain in left shoulder; I10 Essential (primary) hypertension; G40.909 Epilepsy, unspecified, not intractable, without status epilepticus; W01.0XXA Fall on same level from slipping, tripping and stumbling without subsequent striking against object, initial encounter; Y93.9 Activity, unspecified; Y92.9 Unspecified place or not applicable
CPT/HCPCS: 99283

== ENCOUNTER 2019-06-30 00:33 | Emergency (ER) | payer MEDICARE, OTHER ==
[~2019-06-30] VITALS: Ht 167.6 cm; Wt 70.3 kg
[~2019-06-30 00:33] MED LIST changes: +LIDODERM700 M1 TOPIC; +TYLENOL EXTRA500 MG ORAL
[2019-06-30 00:38] VITALS: BP 138/82
--- NOTE | 2019-06-30 00:38 | NUR ---
ED Nurse Note: Patient brought in by RA from home c/o left leg pain for unknown time. Denies fall/ injury. As per patient she had a left leg surgery with pins and screws couple years ago. Stated that she has chronic pain. Pt able to walk but limping on the left side.
--- NOTE | 2019-06-30 01:05 | NUR ---
ED Nurse Note: ERMD at bedside.
[2019-06-30] MEDS ORDERED: TYLENOL325 MG ORAL (01:20)
--- NOTE | 2019-06-30 01:23 | Emergency Room Report ---
History of Present Illness General Chief Complaint: Pain Source: Patient Present Illness HPI Disclaimer: Please note that this report is being documented using DRAGON technology. This can lead to erroneous entry secondary to incorrect interpretation by the dictating instrument. HPI: 69-year-old female history of prior femur or hip fracture, the patient is nonspecific, presents for evaluation of right leg pain. There is no new injury. She states she has chronic pain in the right thigh and hip after surgical fixation of a fracture. She states she has pins, plates and screws. She takes Tylenol for this chronic pain but she ran out. Denies any new trauma or injury. Is still able to ambulate and walks great but since is daily. Denies pain in the knees, ankle or any other complaints at this time. Allergies: Coded Allergies: No Known Allergies (Unverified , 09/20/18) Nursing Documentation-PMH Hx Cardiac Problems: Yes - anemia Hx Hypertension: Yes Hx Seizures: Yes Hx Weakness: Yes - generalized Review of Systems All Other Systems: negative except mentioned in HPI Physical Exam Vital Signs Date Time Temp Pulse Resp B/P (MAP) Pulse Ox O2 Delivery O2 Flow Rate FiO2 06/30/19 00:37 98.4 78 16 138/82 (100) 97 Room Air General: Awake and alert, no acute distress HEENT: NC/AT. EOMI. Resp: Normal work of breathing Skin: Intact. No abrasions, laceration or rash over the exposed skin MSK: Normal tone and bulk. Moving all extremities. No obvious deformity. Pelvis is stable on AP and lateral compression. No obvious deformity in the femur. There is some tenderness to palpation over the lateral aspect of the mid thigh but no palpable deformity. The patella is in anatomic position. Knee joint is stable on varus and valgus testing. No tenderness around the knee joint. No tenderness otherwise in the lower extremity. Neuro: Awake and alert. Mentating appropriately Medical Decision Making Diagnostic Impression: Primary Impression: Chronic pain of right lower extremity ER Course 69-year-old female with a history of orthopedic surgical fixation of the right femur/hip presents for evaluation of chronic pain after running out of Tylenol. No acute injury. Does not require new imaging at this time. She is well- appearing. Will discharge with a new prescription for Tylenol. She otherwise has no complaints is in her usual state of health. Stable for outpatient follow -up. Will refer to orthopedic clinic. Discussed reasons to return to the emergency department. She understands and agrees with the treatment plan. Last Vital Signs Date Time Temp Pulse Resp B/P (MAP) Pulse Ox O2 Delivery O2 Flow Rate FiO2 06/30/19 00:38 98.4 88 16 138/82 97 Room Air Disposition: HOME, SELF-CARE Condition: Stable Scripts Acetaminophen (Tylenol) 325 Mg Tablet 650 MG ORAL Q6H PRN for Prn Pain/Headache/Temp > 101, #30 TAB 0 Refills Prov: Joe Lawton MD 06/30/19 Referrals: [facility] Open 24 hour /7 days a week by Appointment Only [address] [address] Additional Instructions: Continue to use Tylenol and Motrin as needed to treat the chronic pain in the right leg. Follow-up with your orthopedic surgeon if you have not spoken with them in a while to discuss ongoing pain. Return with any new or worsening symptoms. Joe Lawton MD Jun 30, 2019 01:22
[2019-06-30 01:26] VITALS: BP 138/82
--- NOTE | 2019-06-30 01:26 | NUR ---
ED Nurse Note: Pt cleared by ERMD for discharge. DC instructions/prescription was given and explained to pt and verbalized understanding of teachings. All medical devices such as ID band removed. Pt is AAO x4, ambulatory and left with all personal belongings.
[2019-06-30] MEDS ORDERED: Acetaminophen 500mg (ES) tab ORAL ONE (01:30)
== END 2019-06-30 01:26 | disposition home or self-care (01) ==
LOC: EDBD 00:33 → EMR 01:19
DX: M79.604 Pain in right leg (principal); G89.29 Other chronic pain; I10 Essential (primary) hypertension; G40.909 Epilepsy, unspecified, not intractable, without status epilepticus
CPT/HCPCS: 99282

== ENCOUNTER 2019-09-24 09:33 | Emergency (ER) | payer MEDICARE, OTHER ==
[~2019-09-24] VITALS: Ht 170.2 cm; Wt 68.0 kg
[~2019-09-24 09:33] MED LIST changes: +TYLENOL325 MG ORAL
--- NOTE | 2019-09-24 09:38 | NUR ---
ED Nurse Note: Pt brought in by ambulance. Pt has R leg pain 8/10 and thinks there is "pin in leg." Pt R leg is slightly edematous, no redness or wound or pins in leg. Pt is alert and ox2, slurred speech, incoherent.
--- NOTE | 2019-09-24 10:20 | Emergency Room Report ---
History of Present Illness General Chief Complaint: Lower Extremity Injury Source: Patient, Medical Record, EMS Present Illness HPI This patient is homeless. She has a history of alcohol abuse and dependence. She is brought in by EMS per report by EMS right leg pain. When I interviewed this patient, she stated she has a sore throat. The patient is intoxicated. She had no further complaints. Allergies: Coded Allergies: No Known Allergies (Unverified , 09/20/18) COVID-19 Screening Contact w/high risk pt: No Recent Travel to affected area: No Experienced COVID-19 symptoms?: No COVID-19 Testing performed FOREST OFFICER: No Patient History Past Medical History: see triage record, HTN, seizures Social History: Reports: alcohol use; Denies: smoking, drug use Reviewed Nursing Documentation: PMH: Agreed; PSxH: Agreed Nursing Documentation-PMH Past Medical History: No History, Except For Hx Cardiac Problems: Yes - anemia Hx Hypertension: Yes Hx Seizures: Yes Hx Weakness: Yes - generalized Review of Systems All Other Systems: negative except mentioned in HPI Physical Exam Vital Signs Date Time Temp Pulse Resp B/P (MAP) Pulse Ox O2 Delivery O2 Flow Rate FiO2 09/24/19 09:28 97.0 88 16 134/82 (99) 94 Room Air Sp02 EP Interpretation: reviewed, normal General Appearance: no apparent distress, alert, GCS 15, non-toxic Head: normocephalic, atraumatic Eyes: bilateral eye normal inspection, bilateral eye PERRL ENT: hearing grossly normal, normal pharynx, no angioedema, normal voice Neck: full range of motion, supple/symm/no masses Respiratory: chest non-tender, lungs clear, normal breath sounds, no respiratory distress, no retraction, no accessory muscle use, speaking full sentences Cardiovascular #1: regular rate, rhythm, no edema Gastrointestinal: normal bowel sounds, non tender, soft, non-distended, no guarding, no rebound Rectal: deferred Musculoskeletal: normal inspection, back normal, normal range of motion, other - Old surgical scars over R. knee Neurologic: alert, motor strength/tone normal, oriented x3, sensory intact, responsive, speech normal, no focal defects Psychiatric: mood/affect normal, no suicidal/homicidal ideation Skin: normal color Medical Decision Making Diagnostic Impression: Primary Impression: Chronic pain of right lower extremity Additional Impression: Alcohol intoxication ER Course This patient is well-known to [facility]. She has a history of chronic pain secondary to old fractures and hardware in her right lower extremity. She is also an alcoholic and homeless. The patient declined a lab draw. Fingerstick blood sugar was within normal limits. The patient is competent to make her own medical decisions. I did obtain an x-ray of the right hip and right knee. The hardware is in place with no evidence of an acute injury. Overall, the patient was intoxicated and allowed to sober up in the emergency department. She declined any further evaluation. There is no evidence of trauma or injury on physical examination of this patient. The patient was allowed to sober up in the emergency department and was able to ambulate and articulate desire to go home. The patient was clinically sober at the time of discharge. No acute emergency medical condition is identified. The patient was educated on the dangers of alcohol intoxication and abuse. The patient was given a list of the local rehabilitation clinics. Other X-Ray Diagnostic Results Other X-Ray Diagnostic Results : X-Ray ordered: Hip Xray, R. knee xray # of Views/Limited Vs Complete: Complete Indication: Pain Interpretation: no dislocation, no fractures Impression: No acute disease Electronically Signed by: DO CAR Dubois Scribe Text Please see official reports in the electronic medical record. Last Vital Signs Date Time Temp Pulse Resp B/P (MAP) Pulse Ox O2 Delivery O2 Flow Rate FiO2 09/24/19 09:28 97.0 88 16 134/82 (99) 94 Room Air Status: improved Disposition: HOME, SELF-CARE Condition: Improved Scripts No Active Prescriptions or Reported Meds Referrals: TEE HORTON (PCP) Elvie Meyer DO September 24, 2019 10:20
--- NOTE | 2019-09-24 10:44 | NUR ---
ED Nurse Note: Pt being taken to XR.
--- NOTE | 2019-09-24 11:22 | Diagnostic Imaging Report ---
EXAM: X-RAY XRAY Knee 3v R CLINICAL HISTORY: Knee pain. COMPARISON: None FINDINGS: Total of 3 views of the right knee were obtained. There is intramedullary fixation tuan noted traversing the distal femur. Diffuse osteopenia noted. Old fracture deformity of the distal femoral shaft demonstrated. There is no acute bony abnormality. Joint spaces are unremarkable. Surrounding soft tissue is normal. IMPRESSION: FIXATION HARDWARE IN PLACE SPANNING OLD DISTAL FEMORAL FRACTURE. DIFFUSE OSTEOPENIA. NO ACUTE BONY ABNORMALITY.
--- NOTE | 2019-09-24 11:24 | Diagnostic Imaging Report ---
EXAM: X-RAY XRAY Hip Routine 2v+ w/Pelv- R CLINICAL HISTORY: Right hip pain. COMPARISON: None FINDINGS: Total of 4 views of the right hip and bony pelvis were obtained. There is an intramedullary tuan in the right femoral shaft. There are also screws across the right femoral neck. Old right femoral neck fracture deformity noted. There is diffuse osteopenia of the bony pelvis. No acute fracture or malalignment seen. Both hips appear anatomic. There are degenerative changes at the lumbosacral junction. Surrounding soft tissue is normal. IMPRESSION: OLD RIGHT HIP FRACTURE WITH FIXATION HARDWARE IN PLACE. DIFFUSE OSTEOPENIA. NO ACUTE BONY ABNORMALITY NOTED.
--- NOTE | 2019-09-24 11:44 | NUR ---
ED Nurse Note: Pt now a&ox4.
--- NOTE | 2019-09-24 11:45 | NUR ---
ED Nurse Note: Pt refusing labs to be drawn. ERMD aware, states to just get bedside glucose.
[2019-09-24 15:10] VITALS: BP 130/80
--- NOTE | 2019-09-24 15:10 | NUR ---
ER DISCHARGE NOTE:taxi voucher provided and taxim called Patient is cleared to be discharged per ERMD, pt is aox4, on room air, with stable vital signs. pt was given dc instructions, pt was able to verbalize understanding, pt is able to ambulate with steady gait. pt took all belongings.
== END 2019-09-24 15:27 | disposition home or self-care (01) ==
LOC: EDBD 09:33 → EMR 10:00
DX: M79.604 Pain in right leg (principal); G89.29 Other chronic pain; F10.129 Alcohol abuse with intoxication, unspecified; G40.909 Epilepsy, unspecified, not intractable, without status epilepticus; I10 Essential (primary) hypertension; R07.0 Pain in throat; M85.88 Other specified disorders of bone density and structure, other site; M85.861 Other specified disorders of bone density and structure, right lower leg
CPT/HCPCS: 82962; 99284

== ENCOUNTER 2020-02-09 23:51 | Emergency (ER) | payer MEDICARE, MEDICAID ==
[~2020-02-09] VITALS: Ht 165.1 cm; Wt 63.5 kg
[2020-02-09 23:55] VITALS: BP 156/78
[2020-02-10 02:55] VITALS: BP 144/67
--- NOTE | 2020-02-10 04:35 | Emergency Room Report ---
History of Present Illness General Chief Complaint: Chest Pain Source: Patient, EMS Present Illness HPI 69-year-old female presents for evaluation. Brought in by EMS from Street. Patient told EMS she was having chest pain. Denies chest pain to me. States she has been drinking tonight. States he drinks almost every day. Denies nausea or vomiting. Denies drug use. No other aggravating relieving factors. Denies any other associated symptoms Allergies: Coded Allergies: No Known Allergies (Unverified , 09/20/18) COVID-19 Screening Contact w/high risk pt: No Recent Travel to affected area: No Experienced COVID-19 symptoms?: No COVID-19 Testing performed INBOUND TELEMARKETER: No Patient History Past Medical History: HTN Past Surgical History: none Pertinent Family History: none Social History: Reports: alcohol use Now: No Immunizations: UTD Reviewed Nursing Documentation: PMH: Agreed; PSxH: Agreed Nursing Documentation-PMH Hx Cardiac Problems: Yes - anemia Hx Hypertension: Yes Hx Seizures: Yes Hx Weakness: Yes - generalized Review of Systems All Other Systems: negative except mentioned in HPI Physical Exam Vital Signs Date Time Temp Pulse Resp B/P (MAP) Pulse Ox O2 Delivery O2 Flow Rate FiO2 02/09/20 23:51 99.0 87 16 172/88 (116) 100 Room Air 02/09/20 23:55 99 Sp02 EP Interpretation: reviewed, normal General Appearance: no apparent distress, alert, GCS 15, non-toxic Head: normocephalic, atraumatic Eyes: bilateral eye normal inspection, bilateral eye PERRL ENT: hearing grossly normal, normal pharynx, no angioedema, normal voice Neck: full range of motion, supple/symm/no masses Respiratory: chest non-tender, lungs clear, normal breath sounds, speaking full sentences Cardiovascular #1: regular rate, rhythm, no edema Cardiovascular #2: 2+ carotid (R), 2+ carotid (L), 2+ radial (R), 2+ radial (L), 2+ dorsalis pedis (R), 2+ dorsalis pedis (L) Gastrointestinal: normal bowel sounds, non tender, soft, non-distended, no guarding, no rebound Rectal: deferred Genitourinary: normal inspection, no CVA tenderness Musculoskeletal: back normal, normal range of motion, gait/station normal, non- tender Neurologic: alert, motor strength/tone normal, oriented x3, sensory intact, re sponsive, speech normal Psychiatric: judgement/insight normal, memory normal, mood/affect normal, no suicidal/homicidal ideation Reflexes: 3+ bicep (R), 3+ bicep (L), 3+ tricep (R), 3+ tricep (L), 3+ knee (R), 3+ knee (L) Lymphatic: no adenopathy Medical Decision Making Diagnostic Impression: Primary Impression: Alcohol intoxication Qualified Codes: F10.920 - Alcohol use, unspecified with intoxication, uncomplicated ER Course Hospital Course 69-year-old female presents to ED status post EtOH intoxication. Clinical course Patient placed on stretcher. She will history and physical I ordered labs, IV fluids, EKG. EKGnormal sinus rhythm no acute ischemic changes interpreted by me Refused IV access or lab draw. Is resting in ED. Awake alert oriented. Vitals stable. Patient asking to be discharged. We were able to arrange transportat ion to take patient home. Diagnosis - ETOH intoxication stable and discharged to home. Followup with PMD. Return to ED if symptoms recur or worsen EKG Diagnostic Results Rate: normal Rhythm: NSR ST Segments: no acute changes ASA given to the pt in ED: No Rhythm Strip Diag. Results EP Interpretation: yes Rhythm: NSR, no PVC's, no ectopy Last Vital Signs Date Time Temp Pulse Resp B/P (MAP) Pulse Ox O2 Delivery O2 Flow Rate FiO2 02/10/20 02:55 98.3 80 16 144/67 99 Room Air 99 Status: improved Disposition: HOME, SELF-CARE Condition: Stable Scripts No Active Prescriptions or Reported Meds Referrals: [facility],REFERRING (PCP) Patient Instructions: Alcohol Intoxication, [id number] Ish Small MD Feb 10, 2020 04:35
--- NOTE | 2020-02-12 17:06 | Cardiology Report ---
APPROVED REPORT EKG Measurement Heart [id number] <Conclusion> Normal sinus rhythm Possible Left atrial enlargement Borderline ECG
== END 2020-02-10 02:55 | disposition home or self-care (01) ==
LOC: EDBD 23:51 → EMR 02-10 00:19
DX: F10.129 Alcohol abuse with intoxication, unspecified (principal); I10 Essential (primary) hypertension; G40.909 Epilepsy, unspecified, not intractable, without status epilepticus
CPT/HCPCS: 36415; 80307; 93005; 99283; J7030